=== PATIENT | male | born 1975 | race African-American/Black ===

== ENCOUNTER 2018-05-22 08:55 | Emergency (ER) | payer MEDICAID, OTHER ==
[~2018-05-22] VITALS: Ht 188 cm; Wt 81.6 kg
[2018-05-22 09:30] LABS: Urine Bacteria NONE SEEN /hpf (None Seen); Urine Blood TRACE /uL (Negative); Urine Specific Gravity 1.006 (1.001-1.035); Urine WBC <1 /hpf (0 - 3)
[2018-05-22] MEDS ORDERED: SODIUM CHLORIDE 0.9% 1,000 ML IV ONE ×2 (09:38)
[2018-05-22] MEDS ORDERED: ONDANSETRON HCL 4 MG/2 ML VIAL IV ONE (09:45)
[2018-05-22] MEDS ORDERED: MORPHINE SULFATE 4 MG/ML SYR/VIAL IV ONE (09:45)
[2018-05-22 09:52] LABS: Eosinophils # (auto) 0.1 uL; Lymphocytes # (auto) 2.3 uL; Neutrophils # (auto) 3.8 uL; Platelet Count (auto) 213 10^3/uL (140-450); White Blood Cell 6.7 10^3/uL (4.4-10.8)
[2018-05-22 09:54] LABS: Basophils # (auto) 0 uL; Basophils % (auto) 0.6 % (0.0-2.0); Eosinophils % (auto) 0.8 % (0.0-7.0); Hematocrit 52.2 % (41.0-53.0); Lymphocytes % (auto) 33.9 % (10.0-50.0); Mean Corpuscular Hemoglobin 30.3 pg (28.0-32.0); Mean Corpuscular Hgb Conc. 34.5 g/dL (32.0-36.0); Mean Corpuscular Volume 87.7 fL (80.0-100.0); Monocytes # (auto) 0.6 uL; Monocytes % (auto) 8.3 % (0.0-12.0); Neutrophils % (auto) 56.4 % (37.0-80.0); Nucleated Red Blood Cells % 0.4 %; Red Blood Cells 5.95 10^6/uL (4.5-5.90); Red Cell Distribution Width 16.6 % (11.8-14.3)
[2018-05-22 10:07] LABS: Amylase 55 U/L (25-115); Lipase 158 U/L (73-393)
[2018-05-22 10:08] LABS: Albumin 4.6 g/dL (3.4-5.0); Calcium 8.9 mg/dL (8.5-10.1); Potassium 3.3 mmol/L (3.5-5.1)
[2018-05-22 10:11] LABS: Bilirubin, Total 0.5 mg/dL (0.2-1.0); Total Protein 9.1 g/dL (6.4-8.2)
[2018-05-22] MEDS ORDERED: POTASSIUM EFFERVESENT TAB 25 MEQ PO ONE (12:15)
[2018-05-22] MEDS ORDERED: DONNATAL 5ml ORAL Elix (BELLADONNA ALK-PHENOBARB) PO ONE (12:15)
[2018-05-22] MEDS ORDERED: LIDOCAINE VISCOUS 2% 15ML UD PO ONE (12:15)
[2018-05-22] MEDS ORDERED: ALUM & MAG HYDROX-SIMETH LIQ(MAALOX) 30 ML PO ONE (12:15)
[2018-05-22] MEDS ORDERED: HYDROcodone-ACET 10/325MG TAB PO ONE (12:15)
[2018-05-22 14:20] VITALS: BP 126/68
== END 2018-05-22 14:35 | disposition home or self-care (01) ==
LOC: EDBD 08:55 → ER 08:59
DX: K29.70 Gastritis, unspecified, without bleeding (principal); E86.0 Dehydration
CPT/HCPCS: 36415; 71045; 74176; 80053; 81001; 82150; 83690; 84484; 85025; 96361; 96374; 96375; 99285; J2270; J2405; J7030

== ENCOUNTER 2018-05-23 01:02 | Emergency (ER) | payer MEDICAID ==
[~2018-05-23] VITALS: Ht 182.9 cm; Wt 81.6 kg
[2018-05-23] MEDS ORDERED: PROMETHAZINE HCL 25 MG/ML 1ML IV PRN (08:15)
[2018-05-23] MEDS ORDERED: MORPHINE SULFATE 4 MG/ML SYR/VIAL IV ONE (08:15)
[2018-05-23] MEDS ORDERED: IOHEXOL 300 MG/ML 100ML BOTTLE IJ ONE (08:47)
[2018-05-23 10:30] VITALS: BP 115/81
== END 2018-05-23 11:41 | disposition home or self-care (01) ==
LOC: ER 01:08
DX: R10.11 Right upper quadrant pain (principal); D18.1 Lymphangioma, any site
CPT/HCPCS: 74177; 96374; 96375; 99284; J2270; J2550; Q9967

== ENCOUNTER 2018-05-23 22:42 | Emergency (ER) | payer MEDICAID ==
[~2018-05-23] VITALS: Ht 182.9 cm; Wt 81.6 kg
[2018-05-24 01:06] VITALS: BP 116/84
[2018-05-24 01:10] LABS: Basophils # (auto) 0.1 uL; Basophils % (auto) 0.9 % (0.0-2.0); Eosinophils # (auto) 0 uL; Eosinophils % (auto) 0.4 % (0.0-7.0); Hematocrit 53.8 % (41.0-53.0); Hemoglobin 18.3 g/dL (13.5-17.5); Lymphocytes % (auto) 35.6 % (10.0-50.0); Mean Corpuscular Hemoglobin 29.7 pg (28.0-32.0); Mean Corpuscular Volume 87.4 fL (80.0-100.0); Monocytes # (auto) 0.5 uL; Monocytes % (auto) 5.9 % (0.0-12.0); Neutrophils # (auto) 4.8 uL; Neutrophils % (auto) 57.2 % (37.0-80.0); Nucleated Red Blood Cells % 1.1 %; Platelet Count (auto) 236 10^3/uL (140-450); Red Blood Cells 6.16 10^6/uL (4.5-5.90); Red Cell Distribution Width 16.6 % (11.8-14.3); White Blood Cell 8.3 10^3/uL (4.4-10.8)
[2018-05-24 01:28] LABS: Calcium 8.6 mg/dL (8.5-10.1); Potassium 4.4 mmol/L (3.5-5.1)
[2018-05-24] MEDS ORDERED: ONDANSETRON ODT 4 MG TAB PO ONE (01:30)
[2018-05-24] MEDS ORDERED: ALUM & MAG HYDROX-SIMETH LIQ(MAALOX) 30 ML PO ONE (01:30)
[2018-05-24 01:31] LABS: Albumin 4.2 g/dL (3.4-5.0); BUN/Creatinine Ratio 9.6
[2018-05-24 01:33] LABS: Bilirubin, Total 0.5 mg/dL (0.2-1.0); Total Protein 8.4 g/dL (6.4-8.2)
[2018-05-24] MEDS ORDERED: THIAMINE 100mg/ml INJ (200mg/2ml VIAL) IV ONE (02:00)
== END 2018-05-24 02:43 | disposition home or self-care (01) ==
LOC: ER 22:42
DX: K29.00 Acute gastritis without bleeding (principal); G92 Toxic encephalopathy; F10.129 Alcohol abuse with intoxication, unspecified; F15.90 Other stimulant use, unspecified, uncomplicated
CPT/HCPCS: 36415; 80053; 80320; 82150; 83690; 85025; 96374; 99284; J3411

== ENCOUNTER 2018-05-28 12:33 | Emergency (ER) | payer MEDICAID ==
[~2018-05-28] VITALS: Ht 182.9 cm; Wt 81.6 kg
[2018-05-28] MEDS ORDERED: SODIUM CHLORIDE 0.9% 1,000 ML IVB ONE (12:46)
[2018-05-28 13:37] LABS: Basophils # (auto) 0.1 uL; Eosinophils # (auto) 0 uL; Eosinophils % (auto) 0.5 % (0.0-7.0); Hemoglobin 17.8 g/dL (13.5-17.5); Monocytes # (auto) 0.5 uL; Nucleated Red Blood Cells % 0.2 %
[2018-05-28 13:38] LABS: Basophils % (auto) 0.7 % (0.0-2.0); Hematocrit 51.1 % (41.0-53.0); Lymphocytes % (auto) 27.5 % (10.0-50.0); Mean Corpuscular Hemoglobin 30.3 pg (28.0-32.0); Mean Corpuscular Hgb Conc. 34.8 g/dL (32.0-36.0); Monocytes % (auto) 6.4 % (0.0-12.0); Neutrophils # (auto) 4.8 uL; Neutrophils % (auto) 64.9 % (37.0-80.0); Platelet Count (auto) 204 10^3/uL (140-450); Red Blood Cells 5.88 10^6/uL (4.5-5.90); White Blood Cell 7.3 10^3/uL (4.4-10.8)
[2018-05-28 13:54] LABS: Albumin 3.6 g/dL (3.4-5.0); BUN/Creatinine Ratio 13.3; Magnesium 2.3 mg/dL (1.6-2.6); Potassium 3.5 mmol/L (3.5-5.1)
[2018-05-28 13:58] LABS: Bilirubin, Total 0.6 mg/dL (0.2-1.0); Total Protein 7.7 g/dL (6.4-8.2)
[2018-05-28] MEDS ORDERED: ONDANSETRON HCL 4 MG/2 ML VIAL IV ONE (14:00)
[2018-05-28] MEDS ORDERED: MORPHINE SULFATE 4 MG/ML SYR/VIAL IV ONE (14:00)
[2018-05-28 15:26] LABS: Urine Bacteria NONE SEEN /hpf (None Seen); Urine Blood 1+ /uL (Negative); Urine Mucus FEW (None Seen); Urine Specific Gravity 1.009 (1.001-1.035); Urine WBC <1 /hpf (0 - 3)
[2018-05-28 16:32] VITALS: BP 115/84
== END 2018-05-28 16:45 | disposition home or self-care (01) ==
LOC: EDBD 12:33 → ER 12:33
DX: F10.10 Alcohol abuse, uncomplicated (principal); F17.210 Nicotine dependence, cigarettes, uncomplicated; F15.90 Other stimulant use, unspecified, uncomplicated; R42 Dizziness and giddiness; Z59.0 Homelessness
CPT/HCPCS: 36415; 80053; 80320; 81001; 82150; 83690; 83735; 85025; 94761; 96361; 96374; 96375; 99284; J2270; J2405; J7030

== ENCOUNTER 2018-07-05 16:43 | Emergency (ER) | payer MEDICAID ==
[~2018-07-05] VITALS: Ht 182.9 cm; Wt 79.4 kg
[2018-07-05] MEDS ORDERED: SODIUM CHLORIDE 0.9% 1,000 ML IVB ONE (17:39)
[2018-07-05] MEDS ORDERED: LORazepam 2MG/ML-1ML VIAL IV ONE (17:45)
[2018-07-05] MEDS ORDERED: FAMOTIDINE (10MG/ML) 2ML VL IV ONE (18:00)
[2018-07-05 18:23] LABS: Eosinophils # (auto) 0 uL; Eosinophils % (auto) 0.2 % (0.0-7.0); Hemoglobin 17.7 g/dL (13.5-17.5); Mean Corpuscular Hgb Conc. 35.2 g/dL (32.0-36.0); Neutrophils # (auto) 4.1 uL
[2018-07-05 18:25] LABS: Basophils # (auto) 0.1 uL; Basophils % (auto) 0.8 % (0.0-2.0); Hematocrit 50.1 % (41.0-53.0); Lymphocytes # (auto) 2.2 uL; Lymphocytes % (auto) 31.1 % (10.0-50.0); Mean Corpuscular Hemoglobin 31.1 pg (28.0-32.0); Mean Corpuscular Volume 88.2 fL (80.0-100.0); Monocytes # (auto) 0.7 uL; Monocytes % (auto) 10.4 % (0.0-12.0); Neutrophils % (auto) 57.5 % (37.0-80.0); Nucleated Red Blood Cells % 0.2 %; Platelet Count (auto) 243 10^3/uL (140-450); Red Blood Cells 5.68 10^6/uL (4.5-5.90); Red Cell Distribution Width 14.6 % (11.8-14.3); Urine Bacteria NONE SEEN /hpf (None Seen); Urine Blood TRACE /uL (Negative); Urine Specific Gravity 1.004 (1.001-1.035); Urine WBC 1 /hpf (0 - 3); White Blood Cell 7.2 10^3/uL (4.4-10.8)
[2018-07-05 18:36] LABS: Albumin 3.8 g/dL (3.4-5.0); BUN/Creatinine Ratio 8.2; Calcium 8.6 mg/dL (8.5-10.1); Potassium 3.3 mmol/L (3.5-5.1)
[2018-07-05 18:38] LABS: Bilirubin, Total 0.6 mg/dL (0.2-1.0)
[2018-07-05 19:25] VITALS: BP 135/75
[2018-07-05 19:45] LABS: Amphetamine Screen, Urine NEGATIVE (NEGATIVE); Barbiturate Scree,Urine NEGATIVE (NEGATIVE); Benzodiazephine Screen, Urine NEGATIVE (NEGATIVE); Cannabinoid Screen, Urine NEGATIVE (NEGATIVE); Cocaine Screen, Urine NEGATIVE (NEGATIVE); Opiate Scree,Urine NEGATIVE (NEGATIVE); Phencyclidine Screen, Urine NEGATIVE (NEGATIVE)
== END 2018-07-05 21:04 | disposition home or self-care (01) ==
LOC: ER 16:43
DX: F10.129 Alcohol abuse with intoxication, unspecified (principal); F17.210 Nicotine dependence, cigarettes, uncomplicated; F12.90 Cannabis use, unspecified, uncomplicated; F15.90 Other stimulant use, unspecified, uncomplicated
CPT/HCPCS: 36415; 80053; 80307; 80320; 81001; 83690; 85025; 94761; 96374; 99283; J2060

== ENCOUNTER 2018-07-07 22:59 | Emergency (ER) | payer MEDICAID ==
[~2018-07-07] VITALS: Ht 182.9 cm; Wt 79.4 kg
[2018-07-07 23:48] VITALS: BP 126/93
== END 2018-07-08 06:17 | disposition left against medical advice (07) ==
LOC: ER 22:59
DX: F10.10 Alcohol abuse, uncomplicated (principal); Z53.21 Procedure and treatment not carried out due to patient leaving prior to being seen by health care provider
CPT/HCPCS: 80053; 80320

== ENCOUNTER → 2018-07-07 | Emergency (ER) | payer MEDICAID ==
[~2018-07-07] VITALS: Ht 188 cm; Wt 83.9 kg
[~2018-07-07] MED LIST: KETOROLAC TROMETH 30 MG/ML 1ML VIAL IV ONE; SODIUM CHLORIDE 0.9% 1,000 ML IV ONE
[2018-07-07 12:20] VITALS: BP 127/70
[2018-07-07 13:45] LABS: Basophils # (auto) 0 uL; Basophils % (auto) 0.6 % (0.0-2.0); Eosinophils # (auto) 0 uL; Eosinophils % (auto) 0.2 % (0.0-7.0); Hematocrit 50.4 % (41.0-53.0); Hemoglobin 17.6 g/dL (13.5-17.5); Lymphocytes # (auto) 1.3 uL; Lymphocytes % (auto) 19.5 % (10.0-50.0); Mean Corpuscular Volume 88.7 fL (80.0-100.0); Monocytes # (auto) 0.5 uL; Monocytes % (auto) 7.2 % (0.0-12.0); Neutrophils # (auto) 4.9 uL; Neutrophils % (auto) 72.5 % (37.0-80.0); Nucleated Red Blood Cells % 0.3 %; Platelet Count (auto) 206 10^3/uL (140-450); Red Blood Cells 5.68 10^6/uL (4.5-5.90); Red Cell Distribution Width 14.7 % (11.8-14.3); White Blood Cell 6.8 10^3/uL (4.4-10.8)
[2018-07-07 13:54] LABS: Albumin 3.9 g/dL (3.4-5.0); BUN/Creatinine Ratio 8.2; Calcium 8.4 mg/dL (8.5-10.1); Potassium 3.5 mmol/L (3.5-5.1)
[2018-07-07 13:57] LABS: Bilirubin, Total 0.7 mg/dL (0.2-1.0)
== END | disposition home or self-care (01) ==
LOC: EDUNIT# 12:02 → ER 12:02 → EDBD 12:02 → ER 16:15
DX: F10.129 Alcohol abuse with intoxication, unspecified (principal); R10.84 Generalized abdominal pain; F17.210 Nicotine dependence, cigarettes, uncomplicated; F12.90 Cannabis use, unspecified, uncomplicated; F15.90 Other stimulant use, unspecified, uncomplicated
CPT/HCPCS: 36415; 80053; 80320; 83690; 85025; 93005; 94761

== ENCOUNTER 2018-07-08 09:39 | Emergency (ER) | payer MEDICAID ==
[~2018-07-08] VITALS: Ht 188 cm; Wt 90.7 kg
[2018-07-08 09:48] VITALS: BP 127/76
[2018-07-08 10:20] LABS: Basophils # (auto) 0 uL; Eosinophils # (auto) 0 uL; Eosinophils % (auto) 0.3 % (0.0-7.0); Hemoglobin 18.1 g/dL (13.5-17.5); Monocytes # (auto) 0.4 uL
[2018-07-08 10:22] LABS: Basophils % (auto) 0.6 % (0.0-2.0); Hematocrit 52.2 % (41.0-53.0); Lymphocytes # (auto) 1.8 uL; Mean Corpuscular Hemoglobin 30.6 pg (28.0-32.0); Mean Corpuscular Hgb Conc. 34.7 g/dL (32.0-36.0); Mean Corpuscular Volume 88.2 fL (80.0-100.0); Monocytes % (auto) 6.3 % (0.0-12.0); Neutrophils # (auto) 3.4 uL; Neutrophils % (auto) 60.8 % (37.0-80.0); Nucleated Red Blood Cells % 0.1 %; Platelet Count (auto) 212 10^3/uL (140-450); Red Blood Cells 5.92 10^6/uL (4.5-5.90); Red Cell Distribution Width 14.6 % (11.8-14.3); White Blood Cell 5.6 10^3/uL (4.4-10.8)
[2018-07-08 10:51] LABS: Bilirubin, Total 0.4 mg/dL (0.2-1.0); Total Protein 7.9 g/dL (6.4-8.2)
[2018-07-08 10:55] LABS: Potassium 3.5 mmol/L (3.5-5.1)
[2018-07-08 10:56] LABS: BUN/Creatinine Ratio 13.2; Calcium 8.3 mg/dL (8.5-10.1)
== END 2018-07-08 15:25 | disposition left against medical advice (07) ==
LOC: EDBD 09:39 → ER 09:44
DX: F10.10 Alcohol abuse, uncomplicated (principal); Z53.21 Procedure and treatment not carried out due to patient leaving prior to being seen by health care provider
CPT/HCPCS: 36415; 80053; 80320; 85025

== ENCOUNTER 2024-09-05 13:27 | Emergency (ER) | payer MEDICAID ==
[~2024-09-05] VITALS: Ht 182.9 cm; Wt 81.0 kg
--- NOTE | 2024-09-05 14:29 | ED.PDOC ---
Eye-HPI HPI Comments 48-year-old male complaining of right ear plug. Patient states he was [place] last night when he tried to clean his ear today he thinks he pushed the wax in. Has been having intermittent pain and loss of hearing in the right side. Chief Complaint: Earache Time Seen by MD: 13:41 Primary Care Provider: UNKNOWN Reviewed Notes: Nurses Notes Allergies: Coded Allergies: NO KNOWN ALLERGIES (Unverified , 05/22/18) Information Source: Patient Mode of Arrival: Ambulatory Past Medical History PAST MEDICAL HISTORY: Denies Family History Family History: Unknown Social History Smoker: Cigarettes Alcohol: Heavy Drugs: Marijuana, Methamphetamine Lives In: Home Constitutional: denies: chills, diaphoresis, fatigue, fever, malaise, sweats, weakness, others EENTM: reports: ear pain; denies: blurred vision, double vision, ear bleeding, ear discharge, ear drainage, ear ringing, eye redness, hearing loss, mouth pain, mouth swelling, nasal discharge, nose bleeding, nose congestion, nose pain, photophobia, tearing, throat pain, throat swelling, voice changes, others Respiratory: denies: cough, hemoptysis, orthopnea, SOB at rest, shortness of breath, SOB with excertion, stridor, wheezing, others Cardiovascular: denies: chest pain, dizzy spells, diaphoresis, Dyspnea on exertion, edema, irregular heart beat, left arm pain, lightheadedness, palpitations, PND, syncope, others Gastrointestinal: denies: abdomen distended, abdominal pain, blood streaked bowels, constipated, diarrhea, dysphagia, difficulty swallowing, hematemesis, melena, nausea, poor appetite, poor fluid intake, rectal bleeding, rectal pain, vomiting, others Genitourinary: denies: burning, dysuria, flank pain, frequency, hematuria, incontinence, penile discharge, penile sore, pain, testicle pain, testicle swelling, urgency, others Neurological: denies: dizziness, fainting, headache, left sided numbness, left sided weakness, numbness, paresthesia, pre-existing deficit, right sided numbness, right sided weakness, seizure, speech problems, tingling, tremors, weakness, others Musculoskeletal: denies: back pain, gout, joint pain, joint swelling, muscle pain, muscle stiffness, neck pain, others Integumetry: denies: bruises, change in color, change in hair/nails, dryness, laceration, lesions, lumps, rash, wounds, others Allergic/Immunocompromised: denies: Difficulty Healing, Frequent Infections, Hives, Itching, others Physical Exam General Appearance: No Apparent Distress, Normal HEENT: Normal ENT Inspection, Pharynx Normal, Other (Canal plugged with wax right-sided) Neck: Full Range of Motion, Non-Tender, Normal, Normal Inspection Respiratory: Chest Non-Tender, Lungs Clear, No Accessory Muscle Use, No Respiratory Distress, Normal Breath Sounds Cardiovascular: No Edema, No JVD, No Murmur, No Gallop, Normal Peripheral Pulses, Regular Rate/Rhythm Breast Exam: Deferred Gastrointestinal: No Organomegaly, Non Tender, No Pulsatile Mass, Normal Bowel Sounds, Soft Genitalia: Deferred Pelvic: Deferred Rectal: Deferred Extremities: No calf tenderness, Normal capillary refill, Normal inspection, Normal range of motion, Non-tender, No pedal edema Musculoskeletal : Apperance: Normal Neurologic: Alert, 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 Was a procedure done?: No EENT DIFF Eye: N/A Ear: Cerumen Impaction X-Ray, Labs, Meds, VS Vital Signs Date Time Temp Pulse Resp B/P (MAP) Pulse Ox O2 Delivery O2 Flow Rate FiO2 16/ 13:35 97.9 102 16 126/82 (97) 96 X-Ray, Labs, Meds, VS Comment Ear lavage performed, large amount of wax removed. Patient states feeling better. Time of 1ST Reevaluation: 14:28 Reevaluation 1ST: Improved Patient Education/Counseling: Diagnosis, Treatment, Need For Follow Up (Patient advised to follow-up in the emergency room in the next 24 to 48 hours if symptoms do not improve. Advised follow-up with PCP in the next 3 to 5 days. Patient verbalized understanding. ) Family Education/Counseling: Diagnosis, Treatment Departure 1 Departure Time of Disposition: 14:28 Impression: Primary Impression: Cerumen impaction Qualified Codes: H61.21 - Impacted cerumen, right ear Disposition: HOME / SELF CARE / HOMELESS Condition: Fair Discharged With: Self Critical Care Note Critical Care Time?: No Stability Stability form required: No Heart Score Heart Score: Heart Score Response (Comments) Value History N/A 0 EKG N/A 0 Age N/A 0 Risk Factors N/A 0 Troponin N/A 0 Total 0 MADELIN KUHN Sep 05, 2024 14:29
[2024-09-05 14:33] VITALS: BP 126/82; PULSE 102; RESP 16; TEMP 97.9; O2SAT 96
== END 2024-09-05 14:35 | disposition home or self-care (01) ==
LOC: ER 13:27
DX: H61.21 Impacted cerumen, right ear (principal); F17.210 Nicotine dependence, cigarettes, uncomplicated; W44.G1XA Audio device entering into or through a natural orifice, initial encounter; Y93.89 Activity, other specified; Y92.89 Other specified places as the place of occurrence of the external cause; Y99.8 Other external cause status
CPT/HCPCS: 69209

== ENCOUNTER 2024-11-13 08:10 | Emergency (ER) | payer MEDICAID ==
[~2024-11-13] VITALS: Ht 182.9 cm; Wt 84.2 kg
[2024-11-13] MEDS: SODIUM CHLORIDE 0.9% 1,000 ML IV ONE (08:30)
--- NOTE | 2024-11-13 08:45 | ED.PDOC ---
GI ASSESSMENT HPI Comments 49Y M presents to ED with chief complaint left-sided abd pain x2days with nausea, vomiting, and diarrhea. Per pt, emesis is dark brown in color and diarrhea is johnson in color. Pt states diarrhea started today and he has only had one episode. Pt denies sick contact. Pt denies current alcohol, tobacco, and illicit drug use, with last use 3 years ago. No other signs/symptoms or history reported. Chief Complaint: Nausea/Vomiting Time Seen by MD: 08:25 Primary Care Provider: UNKNOWN Reviewed Notes: Nurses Notes, Medications, Allergies Allergies: Coded Allergies: NO KNOWN ALLERGIES (Unverified , 05/22/18) Information Source: Patient Mode of Arrival: Ambulatory Timing: Days Duration: Since onset Prehospital treatment: None Quality: Other Vomitus: Watery, Other (BROWN) Stool: Loose Severity: Mild Recent: None Recent Hx of: None Pain Location: LUQ, LLQ Modifying Factors: Nothing Associated sign and symptoms: Nausea, Vomiting, Diarrhea, Abdominal Pain Past Medical History PAST MEDICAL HISTORY: Denies Surgical History: Denies all surgeries Family History Family History: Unknown Social History Smoker: Non-Smoker Alcohol: Denies ETOH Use Drugs: Denies Drug Use Lives In: Home Constitutional: denies: chills, diaphoresis, fatigue, fever, malaise, sweats, weakness, others EENTM: denies: blurred vision, double vision, ear bleeding, ear discharge, ear drainage, ear pain, ear ringing, eye pain, eye redness, hearing loss, mouth pain, mouth swelling, nasal discharge, nose bleeding, nose congestion, nose pain, photophobia, tearing, throat pain, throat swelling, voice changes, others Respiratory: denies: cough, hemoptysis, orthopnea, SOB at rest, shortness of breath, SOB with excertion, stridor, wheezing, others Cardiovascular: denies: chest pain, dizzy spells, diaphoresis, Dyspnea on exertion, edema, irregular heart beat, left arm pain, lightheadedness, palpitations, PND, syncope, others Gastrointestinal: reports: abdominal pain, diarrhea, nausea, vomiting; denies: abdomen distended, blood streaked bowels, constipated, dysphagia, difficulty swallowing, hematemesis, melena, poor appetite, poor fluid intake, rectal bleeding, rectal pain, others Genitourinary: denies: burning, dysuria, flank pain, frequency, hematuria, incontinence, penile discharge, penile sore, pain, testicle pain, testicle swelling, urgency, others Neurological: denies: dizziness, fainting, headache, left sided numbness, left sided weakness, numbness, paresthesia, pre-existing deficit, right sided numbness, right sided weakness, seizure, speech problems, tingling, tremors, weakness, others Musculoskeletal: denies: back pain, gout, joint pain, joint swelling, muscle pain, muscle stiffness, neck pain, others Integumetry: denies: bruises, change in color, change in hair/nails, dryness, laceration, lesions, lumps, rash, wounds, others Allergic/Immunocompromised: denies: Difficulty Healing, Frequent Infections, Hives, Itching, others Hematologic/Lymphatic: denies: anemia, blood clots, easy bleeding, easy bruising, swollen glands, others Endocrine: denies: excessive hunger, excessive sweating, excessive thirst, excessive urination, flushing, intolerance to cold, intolerance to heat, unexplained weight gain, unexplained weight loss, others Psychiatric: denies: anxiety, bipolar disorder, depression, hopeless, panic disorder, schizophrenia, sleepless, suicidal, others All Other Systems: Reviewed and Negative Physical Exam General Appearance: No Apparent Distress, Normal HEENT: Normal ENT Inspection, Pharynx Normal, TMs Normal Neck: Full Range of Motion, Non-Tender, Normal, Normal Inspection Respiratory: Chest Non-Tender, Lungs Clear, No Accessory Muscle Use, No Respiratory Distress, Normal Breath Sounds Cardiovascular: No Edema, No JVD, No Murmur, No Gallop, Normal Peripheral Pulses, Regular Rate/Rhythm Breast Exam: Deferred Gastrointestinal: No Organomegaly, Non Tender, No Pulsatile Mass, Normal Bowel Sounds, Soft Genitalia: Deferred Pelvic: Deferred Rectal: Deferred Extremities: No calf tenderness, Normal capillary refill, Normal inspection, Normal range of motion, Non-tender, No pedal edema Musculoskeletal : Apperance: Normal Neurologic: Alert, 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 Was a procedure done?: No GI differential Dx Differential Diagnosis: Appendicitis, Bowel Obstruction, Constipation, Diverticular disease, Gastritis/PUD, Gastroenteritis, Inflammatory BD, Pancreatitis, UTI, Dehydration, Diabetes/ DKA, Electrolyte Imbalance, Food Poisoning, Bacterial, Viral, Impaction, Renal Failure, Stress Ulcer, Kidney Stone X-Ray, Labs, Meds, VS Vital Signs Date Time Temp Pulse Resp B/P (MAP) Pulse Ox O2 Delivery O2 Flow Rate FiO2 11/13/24 09:30 98.2 92 14 109/72 (84) 96 98.2 11/13/24 09:30 92 14 96 Room Air* 0 21 11/13/24 08:18 97.9 119 19 123/85 (98) 99 97.9 Lab Test 11/13/24 11:03 11/13/24 08:34 Range/Units Urine Color Yellow Yellow Urine Clarity Clear Clear Urine pH 5.5 5.0-9.0 Urine Specific [place] 1.043 H 1.001-1.035 Urine Protein Trace H Negative Urine Ketones 2+ H Negative Urine Blood 1+ H Negative /uL Urine Nitrite Negative Negative Urine Bilirubin Negative Negative Urine Urobilinogen Normal Negative mg/dL Urine Leukocyte Esterase Negative Negative /uL Urine RBC 7 0 - 3 /hpf Urine Microscopic WBC 1 0-3 /HPF Urine Squamous Epithelial Cells Few <5 /hpf Urine Bacteria None seen None Seen /hpf Urine Mucus Few None Seen Urine Glucose 4+ H Normal mg/dL White Blood Count 7.7 4.4-10.8 10^3/uL Red Blood Count 5.91 H 4.5-5.90 10^6/uL Hemoglobin 17.1 13.5-17.5 g/dL Hematocrit 48.9 41.0-53.0 % Mean Corpuscular Volume 82.7 80.0-100.0 fL Mean Corpuscular Hemoglobin 29.0 28.0-32.0 pg Mean Corpuscular Hemoglobin Concent 35.0 32.0-36.0 g/dL Red Cell Distribution Width 13.9 11.8-14.3 % Platelet Count 175 140-450 10^3/uL Mean Platelet Volume 8.5 6.9-10.8 fL Neutrophils (%) (Auto) 87.3 H 37.0-80.0 % Lymphocytes (%) (Auto) 6.0 L 10.0-50.0 % Monocytes (%) (Auto) 6.2 0.0-12.0 % Eosinophils (%) (Auto) 0.3 0.0-7.0 % Basophils (%) (Auto) 0.2 0.0-2.0 % Neutrophils # (Auto) 6.7 1.6-8.6 10 ^3/uL Lymphocytes # (Auto) 0.5 0.4-5.4 10 ^3/uL Monocytes # (Auto) 0.5 0-1.3 10 ^3/uL Eosinophils # (Auto) 0 0-0.8 10 ^3/uL Basophils # (Auto) 0 0-0.2 10 ^3/uL Nucleated Red Blood Cells 0.3 % Sodium Level 136 136-145 mmol/L Potassium Level 4.0 3.5-5.1 mmol/L Chloride Level 102 98-107 mmol/L Carbon Dioxide Level 24 20-31 mmol/L Anion Gap 10 5-15 Blood Urea Nitrogen 15 9-23 mg/dL Creatinine 0.94 0.700-1.30 mg/dL Glomerular Filtration Rate Calc 99 >90 mL/min BUN/Creatinine Ratio 16.0 10.0-20.0 Serum Glucose 279 H 74-106 mg/dL Calcium Level 9.5 8.7-10.4 mg/dL Total Bilirubin 1.5 H 0.2-1.0 mg/dL Aspartate Amino Transferase (AST) 33 13-40 U/L Alanine Aminotransferase (ALT) 42 H 7-40 U/L Alkaline Phosphatase 104 46-116 U/L Total Protein 7.6 5.7-8.2 g/dL Albumin 4.9 H 3.2-4.8 g/dL Lipase 36 12-53 U/L Plasma/Serum Blood Alcohol < 3.0 <10 mg/dL Current Medications Medications (Trade) Dose Ordered Sig/Elliott Route Start Time Stop Time Status Last Admin Ondansetron HCl (Zofran) 4 mg ONCE ONCE IV 11/13/24 08:30 11/13/24 08:31 DC 11/13/24 09:23 Sodium Chloride 1,000 ml @ 1,000 mls/hr Q1H ONCE IV 11/13/24 08:30 11/13/24 09:29 DC 11/13/24 08:[address] [address] Ph: [phone] DIAGNOSTIC IMAGING Diagnostic Imaging Report : [id number] Signed PATIENT: LATASHA DELANEY SRACCT: [id number] UNIT: [id number] : 1975 LOC: ER ROOM / BED: / AGE / SEX: 49 / M ADM STATUS: REG ER SERVICE [id number] ORDERING PHYSICIAN: ALLAN OG MD PROCEDURE(s): ABPL - CT AB PEL WO CON-NO ORAL OR IV REASON: abdominal pain ORDER NUMBER(s): [id number], ACCESSION NUMBER(s): [id number] CLINICAL HISTORY: Severe abdominal pain with nausea and vomiting TECHNIQUE: CT of the abdomen and pelvis was performed without intravenous contrast. This exam was performed according to our departmental dose optimization program. Up-to-date CT equipment and radiation dose reduction techniques are utilized as appropriate. CTDI: 10.9 DLP: 576.31 WID: COMPARISON: None FINDINGS: Lower Thorax: Small symmetric bilateral gynecomastia. Lung bases are clear. There is mild distention of the visualized esophagus with fluid and debris. Upper limits of normal-sized heart. Trace pericardial fluid. Liver and Biliary system: Normal-sized liver. Mild hepatic steatosis. No definite hepatic lesion. Gallbladder is normal caliber. There is no biliary pop debra dilatation. Spleen: Mild splenomegaly. Adrenal Glands and Kidneys: Normal adrenal glands. Tiny nonobstructing left lower pole renal calculi. There is a small hypodensity in the lower pole left kidney which is not optimally evaluated without contrast though may reflect a cyst. No hydronephrosis in either kidney. Pancreas and Retroperitoneum: Normal unopacified pancreas. A few mildly prominent retroperitoneal lymph nodes although predominantly are normal-size. Aorta and Major Vessels: Aortoiliac vessels are normal in caliber. There is trace calcified plaque in the distal abdominal aorta. Bowel, Mesentery and Peritoneal space: The small and large bowel loops are normal in caliber. Normal appendix. Scattered fluid containing small bowel loops and fluid-filled large bowel. There is no free intraperitoneal air or fluid collection. Pelvis: Unremarkable. Abdominal wall and Osseous Structures: Small fat containing umbilical hernia. Minor lower thoracic and lumbar spondylosis. No destructive osseous lesion. IMPRESSION: 1. Fluid-filled small and large bowel which may be from infectious or inflammatory enterocolitis. 2. Mild distention of the visualized lower esophagus which appears mildly thickened with fluid and debris which could be related to gastroesophageal reflux and/or esophagitis. 3. Mild splenomegaly. 4. Tiny nonobstructing left lower pole renal calculi. ATED BY: LEONILA HELM MD DICTATED DATE/TIME: 11/13/24 1116 SIGNED BY: LEONILA HELM MD SIGNED DATE/TIME: 11/13/24 1116 CC: Time of 1ST Reevaluation: 08:55 Reevaluation 1ST: Unchanged Time of 2ND Reevaluation: 09:47 Reevaluation 2ND: Unchanged Patient Education/Counseling: Diagnosis, Treatment, Prognosis, Need For Follow Up Family Education/Counseling: No Family Present Additional Information Previous [facility] admission/discharge: None Previous [facility] ER visits: 09/05/2024 dx cerumen impaction, 09/08/2017 dx etoh withdrawal The following tests were ordered, and results were reviewed by me: CBC, CMP, LIPASE, CT ABD/PELVIS WO CONTRAST Additional Information was gathered from interviewing the following independent historians: None I reviewed and agreed with the following test results read by other providers: CT ABD/PELVIS WO CONTRAST I discussed treatment and results with medical personnel and: Patient Comprehensive systems review obtained and negative except for what is stated in the HPI. pt feels improved with the nausea, but now reports left sided abdominal pain. i will order a ct and fentanyl the ct shows enterocolitis. pt is feeling improved and does not want to be admitted. i will prescribe zofran for him Departure 1 Departure Time of Disposition: 12:04 Impression: Primary Impression: Enterocolitis Disposition: 01 HOME / SELF CARE / HOMELESS Condition: Good e-Prescriptions Ondansetron Odt 4MG Tab (ZOFRAN PO) 4 Mg Tb 4 MG PO Q4HP PRN for 3 Days, #15 TAB ODT TAB-DISSOLVE IN MOUTH, THEN SWALLOW Prov: ALLAN OG MD 11/13/24 Discharged With: Self Critical Care Note Critical Care Time?: No Stability Stability form required: No Heart Score Heart Score: Heart Score Response (Comments) Value History N/A 0 EKG N/A 0 Age N/A 0 Risk Factors N/A 0 Troponin N/A 0 Total 0 I personally scribed for ALLAN OG MD ([facility]) on 11/13/24 at 08:45. Electronically submitted by Karla Whitmore ([facility]). I personally scribed for ALLAN OG MD ([facility]) on 11/13/24 at 09:53. Electronically submitted by Karla Whitmore ([facility]). I personally scribed for ALLAN OG MD ([facility]) on 11/13/24 at 11:21. Electronically submitted by Karla Whitmore ([facility]). ALLAN OG MD Nov 13, 2024 08:45
[2024-11-13 08:53] LABS: Basophils # (auto) 0 10 ^3/uL (0-0.2); Basophils % (auto) 0.2 % (0.0-2.0); Eosinophils # (auto) 0 10 ^3/uL (0-0.8); Eosinophils % (auto) 0.3 % (0.0-7.0); Hematocrit 48.9 % (41.0-53.0); Hemoglobin 17.1 g/dL (13.5-17.5); Lymphocytes # (auto) 0.5 10 ^3/uL (0.4-5.4); Mean Corpuscular Volume 82.7 fL (80.0-100.0); Monocytes # (auto) 0.5 10 ^3/uL (0-1.3); Monocytes % (auto) 6.2 % (0.0-12.0); Neutrophils # (auto) 6.7 10 ^3/uL (1.6-8.6); Neutrophils % (auto) 87.3 % (37.0-80.0); Nucleated Red Blood Cells % 0.3 %; Platelet Count (auto) 175 10^3/uL (140-450); Red Blood Cells 5.91 10^6/uL (4.5-5.90); Red Cell Distribution Width 13.9 % (11.8-14.3); White Blood Cell 7.7 10^3/uL (4.4-10.8)
[2024-11-13 09:07] LABS: Alkaline Phosphatase 104 U/L (46-116); Anion Gap 10 (5-15); Aspartate Aminotransferase 33 U/L (13-40); Blood Urea Nitrogen 15 mg/dL (9-23); Calcium 9.5 mg/dL (8.7-10.4); Carbon Dioxide 24 mmol/L (20-31); Chloride 102 mmol/L (98-107); Lipase 36 U/L (12-53); Total Protein 7.6 g/dL (5.7-8.2)
[2024-11-13 09:08] LABS: Alanine Aminotransferase 42 U/L (7-40); Albumin 4.9 g/dL (3.2-4.8); Bilirubin, Total 1.5 mg/dL (0.2-1.0); Glucose 279 mg/dL (74-106); Sodium 136 mmol/L (136-145)
[2024-11-13] MEDS: ONDANSETRON HCL 4 MG/2 ML VIAL IV ONE (09:23)
[2024-11-13 09:30] VITALS: PULSE 92; RESP 14; TEMP 98.2; O2SAT 96
[2024-11-13 11:05] LABS: Urine Bacteria None Seen /hpf (None Seen)
[2024-11-13 11:18] LABS: Urine Blood 1+ /uL (Negative); Urine Clarity Clear (Clear); Urine Color Yellow (Yellow); Urine Mucus FEW (None Seen); Urine Protein, UAD TRACE (Negative); Urine Specific Gravity 1.043 (1.001-1.035); Urine Squamous Epithelial Cell FEW /hpf (<5); Urine Urobilinogen Normal (Negative); Urine WBC 1 /HPF (0-3); Urine pH 5.5 (5.0-9.0)
--- NOTE | 2024-11-13 11:19 | DVH ---
CLINICAL HISTORY: Severe abdominal pain with nausea and vomiting TECHNIQUE: CT of the abdomen and pelvis was performed without intravenous contrast. This exam was per formed according to our departmental dose optimization program. Up-to-date CT equipment and radiation dose reduction techniques are utilized as appropriate. CTDI: 10.9 DLP: 576.31 WID: COMPARISON: None FINDINGS: Lower Thorax: Small symmetric bilateral gynecomastia. Lung bases are clear. There is mild distention of the visualized esophagus with fluid and debris. Upper limits of normal-sized heart. Trace pericar dial fluid. Liver and Biliary system: Normal-sized liver. Mild hepatic steatosis. No definite hepatic lesion. Gal lbladder is normal caliber. There is no biliary ductal dilatation. Spleen: Mild splenomegaly. Adrenal Glands and Kidneys: Normal adrenal glands. Tiny nonobstructing left lower pole renal calculi. There is a small hypodensity in the lower pole left kidney which is not optimally evaluated without contrast though may reflect a cyst. No hydronephrosis in either kidney. Pancreas and Retroperitoneum: Normal unopacified pancreas. A few mildly prominent retroperitoneal lym ph nodes although predominantly are normal-size. Aorta and Major Vessels: Aortoiliac vessels are normal in caliber. There is trace calcified plaque in the distal abdominal aorta. Bowel, Mesentery and Peritoneal space: The small and large bowel loops are normal in caliber. Normal appendix. Scattered fluid containing small bowel loops and fluid-filled large bowel. There is no free intraperitoneal air or fluid collection. Pelvis: Unremarkable. Abdominal wall and Osseous Structures: Small fat containing umbilical hernia. Minor lower thoracic an d lumbar spondylosis. No destructive osseous lesion. IMPRESSION: 1. Fluid-filled small and large bowel which may be from infectious or inflammatory enterocolitis. 2. Mild distention of the visualized lower esophagus which appears mildly thickened with fluid and de bris which could be related to gastroesophageal reflux and/or esophagitis. 3. Mild splenomegaly. 4. Tiny nonobstructing left lower pole renal calculi.
[2024-11-13] MEDS ORDERED: ZOFR4T PO (12:04)
[2024-11-13] MEDS: fentaNYL CITRATE 100 MCG/2 ML VL IV ONE (12:36)
[2024-11-13 13:00] VITALS: BP 110/70; PULSE 96; RESP 14; O2SAT 96
== END 2024-11-13 13:38 | disposition home or self-care (01) ==
LOC: ER 08:10
DX: K52.9 Noninfective gastroenteritis and colitis, unspecified (principal)
CPT/HCPCS: 36415; 74176; 80053; 80320; 81001; 83690; 85025; 96361; 96374; 96375; 99285; J2405; J3010; J7030

== ENCOUNTER 2024-12-03 17:30 | Emergency (ER) | payer MEDICAID ==
[~2024-12-03 17:30] MED LIST changes: -KETOROLAC TROMETH 30 MG/ML 1ML VIAL IV ONE; -SODIUM CHLORIDE 0.9% 1,000 ML IV ONE; +ZOFR4T PO
== END 2024-12-03 18:42 | disposition left against medical advice (07) ==
LOC: ER 17:33
DX: R10.2 Pelvic and perineal pain (principal); Z53.21 Procedure and treatment not carried out due to patient leaving prior to being seen by health care provider

== ENCOUNTER 2024-12-11 13:28 | Inpatient (IN) | payer MEDICAID ==
[~2024-12-11] VITALS: Ht 182.9 cm; Wt 83.3 kg
[2024-12-11 14:00] VITALS: PULSE 119; RESP 18; O2SAT 95
[2024-12-11] MEDS: ONDANSETRON HCL 4 MG/2 ML VIAL IV ONE (14:26)
[2024-12-11] MEDS: fentaNYL CITRATE 100 MCG/2 ML VL IV ONE (14:27)
[2024-12-11] MEDS: SODIUM CHLORIDE 0.9% 1,000 ML IV ONE (14:32)
[2024-12-11 14:36] LABS: Basophils # (auto) 0.1 10 ^3/uL (0-0.2); Basophils % (auto) 0.8 % (0.0-2.0); Eosinophils # (auto) 0.1 10 ^3/uL (0-0.8); Eosinophils % (auto) 0.6 % (0.0-7.0); Hematocrit 46.8 % (41.0-53.0); Hemoglobin 16.4 g/dL (13.5-17.5); Lymphocytes # (auto) 2.7 10 ^3/uL (0.4-5.4); Lymphocytes % (auto) 31.3 % (10.0-50.0); Mean Corpuscular Volume 82.8 fL (80.0-100.0); Monocytes # (auto) 0.8 10 ^3/uL (0-1.3); Monocytes % (auto) 9.4 % (0.0-12.0); Neutrophils # (auto) 4.9 10 ^3/uL (1.6-8.6); Neutrophils % (auto) 57.9 % (37.0-80.0); Nucleated Red Blood Cells % 0.3 %; Platelet Count (auto) 198 10^3/uL (140-450); Red Blood Cells 5.65 10^6/uL (4.5-5.90); Red Cell Distribution Width 14.3 % (11.8-14.3); White Blood Cell 8.5 10^3/uL (4.4-10.8)
--- NOTE | 2024-12-11 14:37 | ED.PDOC ---
GI ASSESSMENT HPI Comments 49 y/o M, with PMHx of alcohol abuse and pancreatitis presents to the ED for CC of abdominal pain. Patient states, he has been experiencing LLQ abdominal pain with associated nausea and vomiting onset, today (12/11/24). 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 Patient denies auditory hallucinations, visual hallucinations, tremors, or diarrhea. No other symptoms or modifying factors present at this time. Chief Complaint: Abdominal Pain Time Seen by MD: 13:50 Primary Care Provider: CRISTIN Reviewed Notes: Nurses Notes, Medications, Allergies Allergies: Coded Allergies: NO KNOWN ALLERGIES (Unverified , 05/22/18) Home Meds Active Scripts Ondansetron Odt 4MG Tab (ZOFRAN PO) 4 Mg Tb, 4 MG PO Q4HP PRN for 3 Days, #15 TAB ODT TAB-DISSOLVE IN MOUTH, THEN SWALLOW Prov:ALLAN OG MD 11/13/24 Information Source: Patient Mode of Arrival: Ambulatory Timing: Days Duration: Since onset Prehospital treatment: None Vomitus: Watery Stool: Normal Severity: Moderate Recent: None Recent Hx of: None Pain Location: LLQ, None Modifying Factors: Nothing Associated sign and symptoms: Nausea, Vomiting, Abdominal Pain Past Medical History PAST MEDICAL HISTORY: Denies Surgical History: Denies all surgeries Family History Family History: Unknown Social History Smoker: Non-Smoker Alcohol: Denies ETOH Use Drugs: Denies Drug Use Lives In: Home Constitutional: denies: chills, diaphoresis, fatigue, fever, malaise, sweats, weakness, others EENTM: denies: blurred vision, double vision, ear bleeding, ear discharge, ear drainage, ear pain, ear ringing, eye pain, eye redness, hearing loss, mouth pain, mouth swelling, nasal discharge, nose bleeding, nose congestion, nose pain, photophobia, tearing, throat pain, throat swelling, voice changes, others Respiratory: denies: cough, hemoptysis, orthopnea, SOB at rest, shortness of breath, SOB with excertion, stridor, wheezing, others Cardiovascular: denies: chest pain, dizzy spells, diaphoresis, Dyspnea on exertion, edema, irregular heart beat, left arm pain, lightheadedness, palpitations, PND, syncope, others Gastrointestinal: reports: abdominal pain; denies: abdomen distended, blood streaked bowels, constipated, diarrhea, dysphagia, difficulty swallowing, hemat emesis, melena, nausea, poor appetite, poor fluid intake, rectal bleeding, rectal pain, vomiting, others Genitourinary: denies: burning, dysuria, flank pain, frequency, hematuria, incontinence, penile discharge, penile sore, pain, testicle pain, testicle swelling, urgency, others Neurological: denies: dizziness, fainting, headache, left sided numbness, left sided weakness, numbness, paresthesia, pre-existing deficit, right sided numbness, right sided weakness, seizure, speech problems, tingling, tremors, weakness, others Musculoskeletal: denies: back pain, gout, joint pain, joint swelling, muscle pain, muscle stiffness, neck pain, others Integumetry: denies: bruises, change in color, change in hair/nails, dryness, laceration, lesions, lumps, rash, wounds, others Allergic/Immunocompromised: denies: Difficulty Healing, Frequent Infections, Hives, Itching, others Hematologic/Lymphatic: denies: anemia, blood clots, easy bleeding, easy bruising, swollen glands, others Endocrine: denies: excessive hunger, excessive sweating, excessive thirst, excessive urination, flushing, intolerance to cold, intolerance to heat, unexplained weight gain, unexplained weight loss, others Psychiatric: denies: anxiety, bipolar disorder, depression, hopeless, panic disorder, schizophrenia, sleepless, suicidal, others All Other Systems: Reviewed and Negative Physical Exam General Appearance: No Apparent Distress, Normal HEENT: Normal ENT Inspection, Pharynx Normal, TMs Normal Neck: Full Range of Motion, Non-Tender, Normal, Normal Inspection Respiratory: Chest Non-Tender, Lungs Clear, No Accessory Muscle Use, No Respiratory Distress, Normal Breath Sounds Cardiovascular: No Edema, No Murmur, No Gallop, Normal Peripheral Pulses, Tachycardia Breast Exam: Deferred Gastrointestinal: No Organomegaly, Non Tender, No Pulsatile Mass, Normal Bowel Sounds, Soft Genitalia: Deferred Pelvic: Deferred Rectal: Deferred Extremities: No calf tenderness, Normal capillary refill, Normal inspection, Normal range of motion, Non-tender, No pedal edema Musculoskeletal : Apperance: Normal Neurologic: Alert, 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 Was a procedure done?: No GI differential Dx Differential Diagnosis: Bowel Obstruction, Constipation, Diverticular disease, Gastritis/PUD, Gastroenteritis, Hepatitis, Inflammatory BD, Pancreatitis, UTI, Urolithiasis, Dehydration, Diabetes/ DKA, Drug toxicity, Electrolyte Imbalance, Food Poisoning, Bacterial, Viral, Hypovolemia, Impaction, Renal Failure, Ischemic Bowel, Kidney Stone X-Ray, Labs, Meds, VS Vital Signs Date Time Temp Pulse Resp B/P (MAP) Pulse Ox O2 Delivery O2 Flow Rate FiO2 12/11/24 16:00 98 15 106/53 (70) 94 12/11/24 14:27 106/64 12/11/24 14:00 119 18 95 Room Air* 0 21 12/11/24 14:00 98.1 119 18 106/64 (78) 96 98.1 12/11/24 13:54 121 12/11/24 13:51 97.0 147 20 104/77 (86) 96 97.0 Lab Test 12/11/24 15:51 12/11/24 14:22 12/11/24 14:02 Range/Units White Blood Count 7.5 8.5 4.4-10.8 10^3/uL Red Blood Count 5.30 5.65 4.5-5.90 10^6/uL Hemoglobin 15.4 16.4 13.5-17.5 g/dL Hematocrit 44.5 46.8 41.0-53.0 % Mean Corpuscular Volume 84.0 82.8 80.0-100.0 fL Mean Corpuscular Hemoglobin 29.0 29.0 28.0-32.0 pg Mean Corpuscular Hemoglobin Concent 34.5 35.0 32.0-36.0 g/dL Red Cell Distribution Width 14.6 H 14.3 11.8-14.3 % Platelet Count 187 198 140-450 10^3/uL Mean Platelet Volume 8.3 8.3 6.9-10.8 fL Neutrophils (%) (Auto) 56.1 57.9 37.0-80.0 % Lymphocytes (%) (Auto) 33.2 31.3 10.0-50.0 % Monocytes (%) (Auto) 9.1 9.4 0.0-12.0 % Eosinophils (%) (Auto) 0.8 0.6 0.0-7.0 % Basophils (%) (Auto) 0.8 0.8 0.0-2.0 % Neutrophils # (Auto) 4.2 4.9 1.6-8.6 10 ^3/uL Lymphocytes # (Auto) 2.5 2.7 0.4-5.4 10 ^3/uL Monocytes # (Auto) 0.7 0.8 0-1.3 10 ^3/uL Eosinophils # (Auto) 0.1 0.1 0-0.8 10 ^3/uL Basophils # (Auto) 0.1 0.1 0-0.2 10 ^3/uL Nucleated Red Blood Cells 0.1 0.3 % Sodium Level 140 137 136-145 mmol/L Potassium Level 3.2 L 3.3 L 3.5-5.1 mmol/L Chloride Level 103 99 98-107 mmol/L Carbon Dioxide Level 22 21 20-31 mmol/L Anion Gap 15 17 H 5-15 Blood Urea Nitrogen 10 11 9-23 mg/dL Creatinine 1.00 1.24 0.700-1.30 mg/dL Glomerular Filtration Rate Calc 92 71 >90 mL/min BUN/Creatinine Ratio 10.0 8.9 L 10.0-20.0 Serum Glucose 206 H 276 H 74-106 mg/dL Calcium Level 8.8 10.1 8.7-10.4 mg/dL Total Bilirubin 0.5 0.8 0.2-1.0 mg/dL Aspartate Amino Transferase (AST) 30 31 13-40 U/L Alanine Aminotransferase (ALT) 48 H 53 H 7-40 U/L Alkaline Phosphatase 89 98 46-116 U/L Total Protein 6.2 6.8 5.7-8.2 g/dL Albumin 4.1 4.5 3.2-4.8 g/dL Lipase 42 46 12-53 U/L Plasma/Serum Blood Alcohol 205.0 H <10 mg/dL POC Glucose 275 H 70-106 mg/dl Current Medications Medications (Trade) Dose Ordered Sig/Elliott Route Start Time Stop Time Status Last Admin Sodium Chloride 1,000 ml @ 1,000 mls/hr Q1H ONCE IV 12/11/24 14:15 12/11/24 15:40 DC 12/11/24 14:32 Fentanyl Citrate 25 mcg ONCE ONCE IV 12/11/24 14:15 12/11/24 14:16 DC 12/11/24 14:27 Ondansetron HCl (Zofran) 4 mg ONCE ONCE IV 12/11/24 14:15 12/11/24 14:16 DC 12/11/24 14:26 [place] [id number] Ph: [phone] DIAGNOSTIC IMAGING Diagnostic Imaging Report : [id number] Signed [id number]: [id number] : 1975 LOC: ER ROOM / BED: / AGE / SEX: 49 / M ADM STATUS: REG ER SERVICE 1412 ORDERING PHYSICIAN: ALLAN OG MD PROCEDURE(s): ABPL - CT AB PEL WO CON-NO ORAL OR IV REASON: r/o pancreatitis ORDER NUMBER(s): [id number], ACCESSION NUMBER(s): [id number] Exam: CT CT AB PEL WO CON-NO ORAL OR IV History: r/o pancreatitis Comparison Study: CT CT AB PEL WO CON-NO ORAL OR IV on DOS: 11/13/24 TECHNIQUE: Multidetector CT of the abdomen was performed from lung bases to pubic symphysis. Imaging was performed without IV contrast. Axial, coronal and sagittal multiplanar reformats were obtained from the axial data set by the technologist. Radiation Dose Information: CT Dose: CTDI volume is 6.41 mGy. Dose-length product is 342.23 mGy*cm FINDINGS: Evaluation of solid organs is limited due to lack of intravenous contrast use. Findings: Lung Bases: No acute or significant lung base finding. Normal heart size. No pleural or pericardial effusion. Liver: The liver is normal in size. No focal lesions. Gallbladder and Biliary Tree: Unremarkable Spleen: Unremarkable Pancreas: The pancreas is grossly normal in appearance. Adrenal Glands: Unremarkable Kidneys: Kidneys are grossly normal . Punctate nonobstructing calculus left kidney. Bladder: Grossly unremarkable for degree of distention. Bowel: The stomach is grossly normal in appearance. Small bowel and colon are normal in caliber and distribution. The appendix is not visualized; however, no secondary findings of acute appendicitis identified. Ascites: Absent Lymphadenopathy: No mesenteric, retroperitoneal or periportal lymphadenopathy. Abdominal Wall and Mesentery: Unremarkable. Vasculature: The visualized abdominal aorta is normal in size and caliber. Evaluation of abdominal and pelvic vessels is limited due to lack of intravenous contrast. Pelvic Organs: Prostate measures 5.1 by 4.8 cm Musculoskeletal: No aggressive focal bony lesions, acute fractures or dislocation. Soft tissues: Unremarkable IMPRESSION: 1. Prostate measures 5.1 x 4.[address] findings of bowel obstruction. Possible parenchymal edema of the pancreas no peripancreatic inflammatory changes or fluid collections. No cystic changes to the pancreas. Correlate with lab values. Radiation optimization: All CT scans at this facility use at least one of these dose optimization techniques: automated exposure control mA and/or kV adj ustment per patient size (includes targeted exams where dose is matched to clinical indication) or iterative reconstruction. HS:Y ATED BY: ALECIA CAMPA Jr., DO DICTATED DATE/TIME: 12/11/24 151 SIGNED BY: ALECIA CAMPA Jr., SIGNED DATE/TIME: 12/11/24 1514 CC: Time of 1ST Reevaluation: 14:20 Reevaluation 1ST: Unchanged Time of 2ND Reevaluation: 17:07 Reevaluation 2ND: Improved Patient Education/Counseling: Diagnosis, Treatment, Prognosis, Need For Follow Up Family Education/Counseling: No Family Present Additional Information Previous visits reviewed: 11/13/24 DX: ENTEROCOLITIS, 09/05/24 DX: CERUMEN IMPACTION The following tests were ordered, and results were reviewed by me: CBC, CMP, LIPASE, DRUG SCREEN, URINE ETHANOL, CT ABD PEL I reviewed and agreed with the following test results read by other providers: CT ABD PEL I discussed treatment and results with medical personnel and: patient Comprehensive systems review obtained and negative except for what is stated in the HPI. pt is diabetic and has abdominal pain, cannot keep oral intake down. he feels he has pancreatitis from recent etoh use. however, only edema of the pancreas is shown. due to concerns for progression dto dka, and worsening of abdominal pain, i will have pt admitted Departure 1 Departure Time of Disposition: 17:08 Impression: Primary Impression: Epigastric pain Additional Impressions: Alcohol abuse Substance abuse Uncontrolled diabetes mellitus Qualified Codes: E09.65 - Drug or chemical induced diabetes mellitus with hyperglycemia Disposition: ADMITTED INPATIENT Admit to: Med Surg Condition: Serious Discharged With: Self Critical Care Note Critical Care Time?: Yes (55 min-critical care time only) Critical care comment: Due to concerns for patients condition deteriorating, the care required my highest level of attention and readiness to intervene. I assessed the patient, reviewed the medical records, ordered the appropriate tests and treatments, then reassessed for results and responsiveness. I communicated with medical personnel and consultants and formulated a plan of care. Total critical care time excludes any procedures Stability Stability form required: No Heart Score Heart Score: Heart Score Response (Comments) Value History N/A 0 EKG N/A 0 Age N/A 0 Risk Factors N/A 0 Troponin N/A 0 Total 0 I personally scribed for ALLAN OG MD ([email or web address]) on 12/11/24 at 14:37. Electronically submitted by Sakshi De Paz ([email or web address]). I personally scribed for ALLAN OG MD ([email or web address]) on 12/11/24 at 14:41. Electronically submitted by Sakshi De Paz ([email or web address]). I personally scribed for ALLAN OG MD ([email or web address]) on 12/11/24 at 14:50. Electronically submitted by Sakshi De Paz ([email or web address]). I personally scribed for ALLAN OG MD ([email or web address]) on 12/11/24 at 16:08. Electronically submitted by Sakshi De Paz ([email or web address]). ALLAN OG MD December 11, 2024 14:37
[2024-12-11 14:53] LABS: Albumin 4.5 g/dL (3.2-4.8); Alkaline Phosphatase 98 U/L (46-116); Anion Gap 17 (5-15); Aspartate Aminotransferase 31 U/L (13-40); BUN/Creatinine Ratio 8.9 (10.0-20.0); Blood Urea Nitrogen 11 mg/dL (9-23); Calcium 10.1 mg/dL (8.7-10.4); Carbon Dioxide 21 mmol/L (20-31); Chloride 99 mmol/L (98-107); Sodium 137 mmol/L (136-145); Total Protein 6.8 g/dL (5.7-8.2)
[2024-12-11 14:54] LABS: Bilirubin, Total 0.8 mg/dL (0.2-1.0)
[2024-12-11 15:00] LABS: Alanine Aminotransferase 53 U/L (7-40); Glucose 276 mg/dL (74-106); Potassium 3.3 mmol/L (3.5-5.1)
--- NOTE | 2024-12-11 15:17 | DVH ---
Exam: CT CT AB PEL WO CON-NO ORAL OR IV History: r/o pancreatitis Comparison Study: CT CT AB PEL WO CON-NO ORAL OR IV on DOS: 11/13/24 TECHNIQUE: Multidetector CT of the abdomen was performed from lung bases to pubic symphysis. Imaging was performed without IV contrast. Axial, coronal and sagittal multiplanar reformats were obtained fr om the axial data set by the technologist. Radiation Dose Information: CT Dose: CTDI volume is 6.41 mGy. Dose-length product is 342.23 mGy*cm FINDINGS: Evaluation of solid organs is limited due to lack of intravenous contrast use. Findings: Lung Bases: No acute or significant lung base finding. Normal heart size. No pleural or pericardial effusion. Liver: The liver is normal in size. No focal lesions. Gallbladder and Biliary Tree: Unremarkable Spleen: Unremarkable Pancreas: The pancreas is grossly normal in appearance. Adrenal Glands: Unremarkable Kidneys: Kidneys are grossly normal . Punctate nonobstructing calculus left kidney. Bladder: Grossly unremarkable for degree of distention. Bowel: The stomach is grossly normal in appearance. Small bowel and colon are normal in caliber and d istribution. The appendix is not visualized; however, no secondary findings of acute appendicitis id entified. Ascites: Absent Lymphadenopathy: No mesenteric, retroperitoneal or periportal lymphadenopathy. Abdominal Wall and Mesentery: Unremarkable. Vasculature: The visualized abdominal aorta is normal in size and caliber. Evaluation of abdominal a nd pelvic vessels is limited due to lack of intravenous contrast. Pelvic Organs: Prostate measures 5.1 by 4.8 cm Musculoskeletal: No aggressive focal bony lesions, acute fractures or dislocation. Soft tissues: Unremarkable IMPRESSION: 1. Prostate measures 5.1 x 4.[address] findings of bowel obstruction. Possible parenchymal edema of the pancreas no peripancreatic inflammatory changes or fluid collections. No cystic changes to the pancreas. Correlate with lab valu es. Radiation optimization: All CT scans at this facility use at least one of these dose optimization te chniques: automated exposure control mA and/or kV adjustment per patient size (includes targeted exa ms where dose is matched to clinical indication) or iterative reconstruction. HS:Y
[2024-12-11 15:18] LABS: Lipase 46 U/L (12-53)
[2024-12-11 16:17] LABS: Basophils # (auto) 0.1 10 ^3/uL (0-0.2); Basophils % (auto) 0.8 % (0.0-2.0); Eosinophils # (auto) 0.1 10 ^3/uL (0-0.8); Eosinophils % (auto) 0.8 % (0.0-7.0); Hematocrit 44.5 % (41.0-53.0); Hemoglobin 15.4 g/dL (13.5-17.5); Lymphocytes # (auto) 2.5 10 ^3/uL (0.4-5.4); Lymphocytes % (auto) 33.2 % (10.0-50.0); Mean Corpuscular Hgb Conc. 34.5 g/dL (32.0-36.0); Monocytes # (auto) 0.7 10 ^3/uL (0-1.3); Monocytes % (auto) 9.1 % (0.0-12.0); Neutrophils # (auto) 4.2 10 ^3/uL (1.6-8.6); Neutrophils % (auto) 56.1 % (37.0-80.0); Nucleated Red Blood Cells % 0.1 %; Platelet Count (auto) 187 10^3/uL (140-450); Red Cell Distribution Width 14.6 % (11.8-14.3); White Blood Cell 7.5 10^3/uL (4.4-10.8)
[2024-12-11 16:34] LABS: Albumin 4.1 g/dL (3.2-4.8); Alkaline Phosphatase 89 U/L (46-116); Anion Gap 15 (5-15); Bilirubin, Total 0.5 mg/dL (0.2-1.0); Blood Urea Nitrogen 10 mg/dL (9-23); Calcium 8.8 mg/dL (8.7-10.4); Carbon Dioxide 22 mmol/L (20-31); Chloride 103 mmol/L (98-107); Lipase 42 U/L (12-53); Sodium 140 mmol/L (136-145); Total Protein 6.2 g/dL (5.7-8.2)
[2024-12-11 17:01] LABS: Alanine Aminotransferase 48 U/L (7-40); Aspartate Aminotransferase 30 U/L (13-40); Glucose 206 mg/dL (74-106); Potassium 3.2 mmol/L (3.5-5.1)
[2024-12-11] MEDS: InsuLIN REG 1unit/0.01ml Soln (100units/ml) IV ONE (17:15)
[2024-12-11] MEDS: POTASSIUM EFFERVESENT TAB 25 MEQ PO ONE (19:58)
[2024-12-11] MEDS ORDERED: DEXTROSE (50%) 50ML SYRG IV PRN (20:15)
[2024-12-11] MEDS ORDERED: ACETAMINOPHEN 325 MG TAB PO PRN (20:15)
[2024-12-11] MEDS ORDERED: DOCUSATE SOD 100 MG CAP PO PRN (20:15)
--- NOTE | 2024-12-11 20:19 | DVHHP2 ---
Admitting Diagnosis: Abdominal pain History of Present Illness 49 y/o M, with PMHx of alcohol abuse and pancreatitis presents to the ED for CC of abdominal pain. Patient states, he has been experiencing LLQ abdominal pain with associated nausea and vomiting onset, today (12/11/24). 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 Patient denies auditory hallucinations, visual hallucinations, tremors, or diarrhea. No other symptoms or modifying factors present at this time. PAST MEDICAL HISTORY: Denies Surgical History: Denies all surgeries Family History Family History: Unknown Social History Smoker: Non-Smoker Alcohol: Denies ETOH Use Drugs: Denies Drug Use Lives In: Home Allergies: Coded Allergies: NO KNOWN ALLERGIES (Unverified , 05/22/18) Home Meds Active Scripts Ondansetron Odt 4MG Tab (ZOFRAN PO) 4 Mg Tb, 4 MG PO Q4HP PRN for 3 Days, #15 TAB ODT TAB-DISSOLVE IN MOUTH, THEN SWALLOW Prov:ALLAN OG MD 11/13/24 Vital Signs Vital Signs Date Time Temp Pulse Resp B/P (MAP) Pulse Ox O2 Delivery O2 Flow Rate FiO2 12/11/24 18:00 93 13 115/63 (80) 94 12/11/24 14:00 Room Air* 0 21 12/11/24 14:00 98.1 98.1 Physical Exam Generally 59 years old male, well nourished well developed. No apparent distress HEENT: Normocephalic, atraumatic, heart-regular rate rhythm Lungs clear to auscultate bilaterally Abdomen soft, mild tender left lower quadrant, nondistended Musculoskeletal-no edema cyanosis Neuro neuro-AO x3, no focal deficits Results Labs Test 12/11/24 18:26 12/11/24 15:51 12/11/24 14:22 Range/Units POC Glucose 137 H 70-106 mg/dl White Blood Count 7.5 4.4-10.8 10^3/uL Red Blood Count 5.30 4.5-5.90 10^6/uL Hemoglobin 15.4 13.5-17.5 g/dL Hematocrit 44.5 41.0-53.0 % Mean Corpuscular Volume 84.0 80.0-100.0 fL Mean Corpuscular Hemoglobin 29.0 28.0-32.0 pg Mean Corpuscular Hemoglobin Concent 34.5 32.0-36.0 g/dL Red Cell Distribution Width 14.6 H 11.8-14.3 % Platelet Count 187 140-450 10^3/uL Mean Platelet Volume 8.3 6.9-10.8 fL Neutrophils (%) (Auto) 56.1 37.0-80.0 % Lymphocytes (%) (Auto) 33.2 10.0-50.0 % Monocytes (%) (Auto) 9.1 0.0-12.0 % Eosinophils (%) (Auto) 0.8 0.0-7.0 % Basophils (%) (Auto) 0.8 0.0-2.0 % Neutrophils # (Auto) 4.2 1.6-8.6 10 ^3/uL Lymphocytes # (Auto) 2.5 0.4-5.4 10 ^3/uL Monocytes # (Auto) 0.7 0-1.3 10 ^3/uL Eosinophils # (Auto) 0.1 0-0.8 10 ^3/uL Basophils # (Auto) 0.1 0-0.2 10 ^3/uL Nucleated Red Blood Cells 0.1 % Sodium Level 140 136-145 mmol/L Potassium Level 3.2 L 3.5-5.1 mmol/L Chloride Level 103 98-107 mmol/L Carbon Dioxide Level 22 20-31 mmol/L Anion Gap 15 5-15 Blood Urea Nitrogen 10 9-23 mg/dL Creatinine 1.00 0.700-1.30 mg/dL Glomerular Filtration Rate Calc 92 >90 mL/min BUN/Creatinine Ratio 10.0 10.0-20.0 Serum Glucose 206 H 74-106 mg/dL Calcium Level 8.8 8.7-10.4 mg/dL Total Bilirubin 0.5 0.2-1.0 mg/dL Aspartate Amino Transferase (AST) 30 13-40 U/L Alanine Aminotransferase (ALT) 48 H 7-40 U/L Alkaline Phosphatase 89 46-116 U/L Total Protein 6.2 5.7-8.2 g/dL Albumin 4.1 3.2-4.8 g/dL Lipase 42 12-53 U/L Plasma/Serum Blood Alcohol 205.0 H <10 mg/dL Primary Diagnosis Alcoholic gastritis Alcohol intoxication impending withdrawal Plan CT abdomen and pelvis shows no acute infection Alcohol level elevated Patient remains intoxication impending withdrawal Daily CIWA score Alcohol withdrawal protocol p.r.n. PPI for GI prophylaxis Thiamine and folate IV fluids Insulin sliding scale fingerstick 140-180 Full code Regular diet Lovenox for DVT prophylaxis PPI for GI prophylax Plan discussed with: Patient Problems List: (1) Alcohol abuse Status: Acute (2) Uncontrolled diabetes mellitus Status: Acute (3) Alcohol intoxication Status: Acute (4) Epigastric pain Status: Acute Date of Service: December 11, 2024 Billing Provider: DAVIAN LU MD Common Visit Codes: [id number] INP/OBS CARE (MOD) DAVIAN LU MD December 11, 2024 20:19
[2024-12-11] MEDS ORDERED: LORazepam 0.5 MG TAB PO PRN (20:30)
[2024-12-11] MEDS: LACTATED RINGER'S 1,000 ML IV ONE (20:34)
[2024-12-11] MEDS: FOLIC ACID 1 MG TAB PO ONE (20:38)
[2024-12-11] MEDS: MULTIPLE VITAMIN TAB PO ONE (20:38)
[2024-12-11] MEDS: THIAMINE HCL 100 MG TAB PO ONE (20:38)
[2024-12-11 21:30] VITALS: BP 112/72; PULSE 89; RESP 18; TEMP 98.7; O2SAT 99
[2024-12-11 21:36] VITALS: BP 112/72; PULSE 89; RESP 18; TEMP 98.7; O2SAT 99
[2024-12-11] MEDS: InsuLIN REG 1unit/0.01ml Soln (100units/ml) SC SCH (21:37)
[2024-12-11] MEDS: ACCU-CHEK COMFORT CURVE STRIP VI SCH (21:37)
[2024-12-11] MEDS: SODIUM CHLOR 0.9% PF (SALINE LOCK) 10ML VIAL/SYR IV SCH (21:38)
[2024-12-11 22:46] LABS: Barbiturate Scree,Urine Neg (NEGATIVE); Benzodiazephine Screen, Urine Neg (NEGATIVE); Cannabinoid Screen, Urine Neg (NEGATIVE); Cocaine Screen, Urine Neg (NEGATIVE); Opiate Scree,Urine Neg (NEGATIVE); Phencyclidine Screen, Urine Neg (NEGATIVE)
[2024-12-11 23:57] LABS: Amphetamine Screen, Urine Pos (NEGATIVE)
[2024-12-12] MEDS: HYDROmorphone HCL 2 MG/ML VL/or syr IV PRN (03:32)
[2024-12-12 05:49] VITALS: BP 102/71; PULSE 98; RESP 18; TEMP 97.7; O2SAT 97
[2024-12-12] MEDS: LORazepam 2MG/ML-1ML VIAL IV PRN (06:05)
[2024-12-12] MEDS: InsuLIN REG 1unit/0.01ml Soln (100units/ml) SC SCH (06:16)
[2024-12-12 08:34] VITALS: BP 111/65; PULSE 91; RESP 16; TEMP 98.2; O2SAT 96
[2024-12-12] MEDS: THIAMINE HCL 100 MG TAB PO SCH (08:42)
[2024-12-12] MEDS: PANTOPRAZOLE 40 MG/10 ML VIAL INJ IV SCH (08:42)
[2024-12-12] MEDS: FOLIC ACID 1 MG TAB PO SCH (08:42)
[2024-12-12] MEDS: MULTIPLE VITAMIN TAB PO SCH (08:42)
[2024-12-12] MEDS: ENOXAPARIN SOD 40 MG/0.4 ML SYRINGE SC SCH (08:42)
[2024-12-12 10:48] LABS: INR 1.03 (0.9-1.15); Partial Thromboplastin Time 26.4 SEC (24.5-34.5); Prothrombin Time 10.9 sec (9.3-11.8)
[2024-12-12 10:50] LABS: Alkaline Phosphatase 96 U/L (46-116); Anion Gap 10 (5-15); Aspartate Aminotransferase 25 U/L (13-40); BUN/Creatinine Ratio 15.3 (10.0-20.0); Bilirubin, Total 0.9 mg/dL (0.2-1.0); Blood Urea Nitrogen 13 mg/dL (9-23); Chloride 102 mmol/L (98-107); Magnesium 1.9 mg/dL (1.6-2.6); Potassium 4.4 mmol/L (3.5-5.1); Sodium 137 mmol/L (136-145); Total Protein 5.9 g/dL (5.7-8.2)
[2024-12-12 10:51] LABS: Alanine Aminotransferase 47 U/L (7-40); Calcium 9.5 mg/dL (8.7-10.4); Carbon Dioxide 25 mmol/L (20-31); Glucose 266 mg/dL (74-106)
[2024-12-12] MEDS: FOLIC ACID 1 MG, MULTIPLE VITAMIN 10 ML, MAGNESIUM SULF SDV 50% 8 MEQ, THIAMINE INJ 100... INJ SCH (11:10)
[2024-12-12] MEDS ORDERED: IOHEXOL 300 MG/ML 100ML BOTTLE IJ ONE (13:26)
--- NOTE | 2024-12-12 13:28 | DVHPNRES ---
Progress Note Date Seen: December 12, 2024 Resident Creating Document: VICK GARZA RESIDENT Has the PT tested + for MRSA If YES, has PT been informed?: No Medical Necessity Reason Pt with a Central, PICC or Fol: No Subjective Review of Systems Johan Gill Sr. is a 49-year-old male with a past medical history of alcohol abuse and pancreatitis who presented to the Emergency Department with complaints of abdominal pain. The patient reports experiencing left lower quadrant abdominal pain that began earlier today (12/11/24), accompanied by nausea and vomiting. He admits to heavy alcohol consumption over the past week, drinking up to one pint of liquor daily, with his last drink approximately one hour prior to arrival. He denies experiencing auditory or visual hallucinations, tremors, or diarrhea. No additional symptoms or modifying factors were reported at this time.On my assessment patient denies other drug abuse. Patient seen and examined at the bedside. Patient is still reporting having abdominal pain, ordered Carafate and ordered CT abdominal pelvis with contrast. Patient reports: Feels better Objective vital signs Vital Sign Date Time Temp Pulse Resp B/P (MAP) Pulse Ox O2 Delivery O2 Flow Rate FiO2 12/12/24 09:22 70 18 118/69 12/12/24 08:34 98.2 96 98.2 12/11/24 14:00 Room Air* 0 21 Total Intake and Output 12/11/24 12/11/24 12/12/24 15:00 23:00 07:00 Intake Total 1000 ml Balance 1000 ml medications Current Medications Medications Dose Ordered Sig/Elliott Route Start Time Stop Time Status Last Admin Dose Admin Sodium Chloride 10 ml Q8HR IV 12/11/24 22:00 12/12/24 05:48 10 ML Docusate Sodium 100 mg BIDPRN PRN PO 12/11/24 20:15 Acetaminophen 650 mg Q6HP PRN PO 12/11/24 20:15 Acetaminophen/ Hydrocodone Bitart 1 tab Q4HP PRN PO 12/11/24 20:15 Hydromorphone HCl 0.5 mg Q4HP PRN IV 12/11/24 20:15 12/12/24 08:52 0.5 MG Ondansetron HCl 4 mg Q4HP PRN IV 12/11/24 20:15 Enoxaparin Sodium 40 mg DAILY SC 12/12/24 10:00 12/12/24 08:42 40 MG Diagnostic Test (Pha) 1 strip ACHS 12/11/24 22:00 12/12/24 11:30 1 STRIP Insulin Human Regular HS SC 12/11/24 22:00 Insulin Human Regular AC SC 12/12/24 07:00 12/12/24 11:51 9 UNITS Dextrose 50 ml UD PRN IV 12/11/24 20:15 Pantoprazole Sodium 40 mg DAILY IV 12/12/24 10:00 12/12/24 08:42 40 MG Thiamine HCl 100 mg DAILY PO 12/12/24 10:00 Hold 12/12/24 08:42 100 MG Folic Acid 1 mg DAILY PO 12/12/24 10:00 Hold 12/12/24 08:42 1 MG Multivitamins 1 tab DAILY PO 12/12/24 10:00 Hold 12/12/24 08:42 1 TAB Lorazepam 1 mg Q2HPRN PRN IV 12/11/24 20:30 12/12/24 06:05 1 MG Lorazepam 2 mg Q2HPRN PRN PO 12/11/24 20:30 Folic Acid 1 mg/ Multivitamins 10 ml/Magnesium Sulfate 8 meq/ Thiamine HCl 100 mg/Dextrose 1,013.2 ml @ 125.001 mls/hr DAILY@1800 INJ 12/12/24 10:21 12/12/24 11:10 125.001 MLS/HR Sucralfate 1 gm BID@0600,2200 PO 12/12/24 13:00 Examination Pt is lying on bed General Appearance: Alert, Oriented X3, Cooperative, Not in acute distress HEENT: Atraumatic, Mucous membranes moist/pink Respiratory: Clear to auscultation, Normal air movement, No added sounds Cardiovascular: Regular rate, Normal S1, Normal S2, No murmurs Abdominal: Active bowel sounds, Soft, no distention,Mild upper abdominal tenderness Extremities: No edema, Normal pulses, No tenderness/swelling Skin: No Significant rash, except past surgical scars Neuro: Normal speech, sensorimotor deficits none Psych/Mental Status: Mental status NL, Mood NL Nurse was there as sharperone during examination laboratory and microbiology Laboratory Tests 12/12/24 10:23 12/11/24 15:51 Test 12/12/24 10:23 Range/Units Serum Glucose 266 H 74-106 mg/dL Labs and/or images reviewed: Labs reviewed by me, Image(s) reviewed by me Problem List/Assessment/Plan Problem List/Assessment/Plan # Acute alcohol intoxication - IVF - avoid sedatives - multivitamins including thiamine and folic acid - banana bag - monitor for alcohol withdrawal - if patient has started withdrawals based on [facility] protocol we will start Librium or Ativan # Intractable abdominal pain likely gastritis vs other unspecified etiology for now # rule out pancreatitis - Protonix, Carafate - lipase negative - CT abdominal pelvis without contrast showed no acute findings so ordered new CT scan with contrast - pain management # ? amphetamine abuse disorder- counseled regarding cessation of found than 17 minutes Protonix Lovenox Diet liquid Goals of care addressed with the patient for more than 27 minutes: Full code status Case discussed with Dr. Boudreaux, patient and nurse Plan discussed with: Patient My Orders My Orders Orders - VICK GARZA RESIDENT Procedure Category Date Status Time Urinalysis LAB 12/12/24 Logged 09:52 Folic Acid... PHA 12/12/24 In Process 10:21 Sucralfate Susp PHA 12/12/24 In Process (Carafate Susp) 13:00 Ct Ab Pel With Iv Con CT 12/12/24 Logged Only 12:47 Date of Service: December 12, 2024 Billing Provider: GARY BOUDREAUX MD Common Visit Codes: [id number] INP/OBS CARE(HIGH) VICK GARZA RESIDENT December 12, 2024 13:28 GARY BOUDREAUX MD December 12, 2024 23:20
[2024-12-12] MEDS: SUCRALFATE 1 GM/10 ML ORAL SUSP PO SCH (13:38)
[2024-12-12] MEDS: HYDROcodone-ACET 5/325MG TAB PO PRN (13:39)
--- NOTE | 2024-12-12 14:22 | DVH ---
Exam: CT CT AB PEL WITH IV CON ONLY History: Abd pain Comparison Study: None Contrast: Type of contrast: Omni 300 Contrast injected: 100 mL Contrast wasted: 0 TECHNIQUE: A digital chart changer image was obtained. During the uneventful, intravenous administration of c ontrast material, multislice data acquisition was obtained through the abdomen and pelvis. The data s et was subsequently reconstructed into axial images. Images were reviewed on a work station using a c ombination of axial and multiplanar using a variety of window levels and settings. Radiation Dose Information: CT Dose: CTDI volume is 6.4 mGy. Dose-length product is 367.56 mGy*cm FINDINGS: Lung Bases: No acute or significant lung base finding. Normal heart size. No pleural or pericardial effusion. Liver: The liver is normal in size. No focal lesions. Normal hepatic vascular enhancement. CT findin gs consistent with hepatic steatosis. Gallbladder and Biliary Tree: Unremarkable Spleen: Unremarkable Pancreas: The pancreas is normal in appearance without focal lesions or abnormal enhancement. Adrenal Glands: Unremarkable Kidneys: Kidneys demonstrate normal symmetric enhancement without focal lesions, calculi or hydroneph rosis. 13 mm cortical cysts left kidney. Bladder: Unremarkable Bowel: The stomach is distended with food and liquid. Small bowel and colon are normal in caliber and distribution. The appendix is not visualized; however, no secondary findings of acute appendicitis i dentified. Ascites: Absent Lymphadenopathy: No mesenteric, retroperitoneal or periportal lymphadenopathy. Abdominal Wall and Mesentery: Unremarkable. Vasculature: The visualized abdominal aorta is normal in size and caliber. Abdominal and pelvic vess els demonstrate normal enhancement. Pelvic Organs: Unremarkable Musculoskeletal: No aggressive focal bony lesions, acute fractures or dislocation. Soft tissues: Unremarkable. IMPRESSION: 1. 1. Hepatic steatosis 2. 2. No findings of bowel obstruction. 3. 3. 13 mm cortical cyst left kidney. 4. 4. No calcified gallstones. 5. 5. Fluid and food distended stomach. Correlate for recent meal. 6. All CT scans at this medical facility are performed using dose modulation techniques as appropriat e to a performed exam including the following: Automated exposure control was utilized; adjustment of the MA and/or KV according to patient size; and use of iterative reconstruction technique. HS:Y
[2024-12-12 18:05] VITALS: BP 120/82; PULSE 86; PULSE 89; RESP 17; RESP 18; TEMP 98; O2SAT 95
[2024-12-12 19:30] VITALS: RESP 17; O2SAT 98
[2024-12-12 20:00] VITALS: RESP 17; O2SAT 98
[2024-12-12 21:00] VITALS: BP 107/67; PULSE 90; RESP 17; TEMP 98.2; O2SAT 97
[2024-12-12] MEDS: ONDANSETRON HCL 4 MG/2 ML VIAL IV PRN (23:44)
[2024-12-13 01:00] VITALS: BP 112/58; PULSE 85; RESP 16; TEMP 98.1; O2SAT 95
[2024-12-13 05:00] VITALS: BP 100/72; PULSE 90; RESP 17; TEMP 97.8; O2SAT 96
[2024-12-13 06:58] LABS: Basophils # (auto) 0.1 10 ^3/uL (0-0.2); Basophils % (auto) 0.8 % (0.0-2.0); Eosinophils # (auto) 0.1 10 ^3/uL (0-0.8); Eosinophils % (auto) 1.5 % (0.0-7.0); Hematocrit 43.4 % (41.0-53.0); Hemoglobin 15.1 g/dL (13.5-17.5); Lymphocytes % (auto) 28.8 % (10.0-50.0); Mean Corpuscular Hemoglobin 29.1 pg (28.0-32.0); Mean Corpuscular Hgb Conc. 34.7 g/dL (32.0-36.0); Mean Corpuscular Volume 83.7 fL (80.0-100.0); Monocytes # (auto) 0.5 10 ^3/uL (0-1.3); Monocytes % (auto) 7.7 % (0.0-12.0); Neutrophils # (auto) 4.2 10 ^3/uL (1.6-8.6); Neutrophils % (auto) 61.2 % (37.0-80.0); Nucleated Red Blood Cells % 0.2 %; Platelet Count (auto) 152 10^3/uL (140-450); Red Blood Cells 5.18 10^6/uL (4.5-5.90); Red Cell Distribution Width 14.3 % (11.8-14.3); White Blood Cell 6.9 10^3/uL (4.4-10.8)
[2024-12-13 07:07] LABS: Alanine Aminotransferase 38 U/L (7-40); Alkaline Phosphatase 85 U/L (46-116); Anion Gap 9 (5-15); BUN/Creatinine Ratio 11.5 (10.0-20.0); Blood Urea Nitrogen 10 mg/dL (9-23); Calcium 9.2 mg/dL (8.7-10.4); Carbon Dioxide 26 mmol/L (20-31); Chloride 104 mmol/L (98-107); Magnesium 2.2 mg/dL (1.6-2.6); Potassium 3.7 mmol/L (3.5-5.1); Sodium 139 mmol/L (136-145); Total Protein 5.7 g/dL (5.7-8.2)
[2024-12-13 07:08] LABS: Albumin 3.7 g/dL (3.2-4.8); Aspartate Aminotransferase 19 U/L (13-40); Bilirubin, Total 0.8 mg/dL (0.2-1.0)
[2024-12-13 07:21] LABS: Glucose 160 mg/dL (74-106)
[2024-12-13 08:45] VITALS: BP 111/73; PULSE 75; RESP 18; TEMP 98.3; O2SAT 98
--- NOTE | 2024-12-13 11:06 | DVHPNRES ---
Progress Note Date Seen: December 13, 2024 Resident Creating Document: VICK GARZA RESIDENT Has the PT tested + for MRSA If YES, has PT been informed?: No Medical Necessity Reason Pt with a Central, PICC or Fol: No Subjective Review of Systems Patient seen and examined at the bedside. Reported improvement in his abdominal pain since admission. No new complaints at this time. Patient reports: Feels better Objective vital signs Vital Sign Date Time Temp Pulse Resp B/P (MAP) Pulse Ox O2 Delivery O2 Flow Rate FiO2 12/13/24 08:45 98.3 75 18 111/73 (86) 98 98.3 12/13/24 08:05 Room Air* 0 21 Total Intake and Output 12/12/24 12/12/24 12/13/24 15:00 23:00 07:00 Intake Total 375 ml 375 ml 305 ml Balance 375 ml 375 ml 305 ml medications Current Medications Medications Dose Ordered Sig/Elliott Route Start Time Stop Time Status Last Admin Dose Admin Sodium Chloride 10 ml Q8HR IV 12/11/24 22:00 12/13/24 05:11 10 ML Docusate Sodium 100 mg BIDPRN PRN PO 12/11/24 20:15 Acetaminophen 650 mg Q6HP PRN PO 12/11/24 20:15 Acetaminophen/ Hydrocodone Bitart 1 tab Q4HP PRN PO 12/11/24 20:15 12/13/24 09:20 1 TAB Hydromorphone HCl 0.5 mg Q4HP PRN IV 12/11/24 20:15 12/12/24 18:47 0.5 MG Ondansetron HCl 4 mg Q4HP PRN IV 12/11/24 20:15 12/12/24 23:44 4 MG Enoxaparin Sodium 40 mg DAILY SC 12/12/24 10:00 12/13/24 09:19 40 MG Diagnostic Test (Pha) 1 strip ACHS 12/11/24 22:00 12/13/24 05:18 1 STRIP Insulin Human Regular HS SC 12/11/24 22:00 12/12/24 21:37 4 UNITS Insulin Human Regular AC SC 12/12/24 07:00 12/13/24 05:19 2 UNITS Dextrose 50 ml UD PRN IV 12/11/24 20:15 Pantoprazole Sodium 40 mg DAILY IV 12/12/24 10:00 12/13/24 09:19 40 MG Thiamine HCl 100 mg DAILY PO 12/12/24 10:00 Hold 12/12/24 08:42 100 MG Folic Acid 1 mg DAILY PO 12/12/24 10:00 Hold 12/12/24 08:42 1 MG Multivitamins 1 tab DAILY PO 12/12/24 10:00 Hold 12/12/24 08:42 1 TAB Lorazepam 1 mg Q2HPRN PRN IV 12/11/24 20:30 12/12/24 06:05 1 MG Lorazepam 2 mg Q2HPRN PRN PO 12/11/24 20:30 Folic Acid 1 mg/ Multivitamins 10 ml/Magnesium Sulfate 8 meq/ Thiamine HCl 100 mg/Dextrose 1,013.2 ml @ 125.001 mls/hr DAILY@1800 INJ 12/12/24 10:21 12/12/24 11:10 125.001 MLS/HR Sucralfate 1 gm BID@0600,2200 PO 12/12/24 13:00 12/13/24 05:11 1 GM Examination Pt is lying on bed General Appearance: Alert, Oriented X3, Cooperative, Not in acute distress HEENT: Atraumatic, Mucous membranes moist/pink Respiratory: Clear to auscultation, Normal air movement, No added sounds Cardiovascular: Regular rate, Normal S1, Normal S2, No murmurs Abdominal: Active bowel sounds, Soft, no distention, no tenderness Extremities: No edema, Normal pulses, improved abdominal tenderness since yesterday Skin: No Significant rash, except past surgical scars Neuro: Normal speech, sensorimotor deficits none Psych/Mental Status: Mental status NL, Mood NL Nurse was there as sharperone during examination laboratory and microbiology Laboratory Tests 12/13/24 06:09 Test 12/13/24 06:09 Range/Units Serum Glucose 160 #H 74-106 mg/dL Labs and/or images reviewed: Labs reviewed by me, Image(s) reviewed by me Problem List/Assessment/Plan Problem List/Assessment/Plan # Acute alcohol intoxication - IVF - avoid sedatives - multivitamins including thiamine and folic acid - banana bag - monitor for alcohol withdrawal - if patient has started withdrawals based on [facility] protocol we will start Librium or Ativan # Intractable abdominal pain likely gastritis # ruled out pancreatitis - Protonix, Carafate - lipase negative - CT abdominal pelvis without contrast showed no acute findings so ordered new CT scan with contrast which showed hepatic steatosis - pain management # hepatic steatosis - outpatient follow up with GI # ? amphetamine abuse disorder- counseled regarding cessation of found than 17 minutes Protonix Lovenox Diet liquid Goals of care addressed with the patient for more than 27 minutes: Full code status Case discussed with Dr. Marie, patient and nurse Plan discussed with: Patient My Orders My Orders Orders - VICK GARZA Procedure Category Date Status Time Sucralfate Susp PHA 12/12/24 In Process (Carafate Susp) 13:00 Ct Ab Pel With Iv Con CT 12/12/24 Resulted Only 12:47 Date of Service: December 13, 2024 Billing Provider: LUIS MARIE MD Common Visit Codes: [id number] INP/OBS CARE(HIGH) VICK GARZA December 13, 2024 11:06 LUIS MARIE MD December 13, 2024 21:24
[2024-12-13] MEDS ORDERED: chlordiazePOXIDE HCL 5 MG CAP PO PRN (12:15)
[2024-12-13] MEDS: MULTIPLE VITAMIN TAB PO ONE (12:18)
[2024-12-13] MEDS: MAGNESIUM OXIDE 400 MG TAB PO ONE (12:18)
[2024-12-13] MEDS: FOLIC ACID 1 MG TAB PO ONE (12:18)
[2024-12-13] MEDS: THIAMINE HCL 100 MG TAB PO ONE (12:18)
[2024-12-13 12:51] VITALS: BP 118/89; PULSE 82; RESP 18; TEMP 98.3; O2SAT 96
[2024-12-13 12:52] LABS: Urine Bacteria None Seen /hpf (None Seen)
[2024-12-13 13:10] LABS: Urine Blood Negative /uL (Negative); Urine Clarity Clear (Clear); Urine Color Yellow (Yellow); Urine Mucus FEW (None Seen); Urine Protein, UAD TRACE (Negative); Urine Specific Gravity 1.036 (1.001-1.035); Urine Squamous Epithelial Cell None Seen /hpf (<5); Urine Urobilinogen Normal (Negative); Urine WBC 1 /HPF (0-3)
[2024-12-13 16:43] VITALS: BP 109/73; PULSE 82; RESP 18; TEMP 98; O2SAT 95
[2024-12-13 21:00] VITALS: BP 131/81; PULSE 67; RESP 20; TEMP 98.1; O2SAT 98
[2024-12-14 01:00] VITALS: BP 122/67; PULSE 84; RESP 20; TEMP 98.1; O2SAT 99
[2024-12-14 05:00] VITALS: BP 115/74; PULSE 73; RESP 20; TEMP 98; O2SAT 99
[2024-12-14 09:00] VITALS: BP 129/88; PULSE 85; RESP 16; TEMP 98.8; O2SAT 97
[2024-12-14] MEDS: MULTIPLE VITAMIN TAB PO SCH (09:54)
[2024-12-14] MEDS: MAGNESIUM OXIDE 400 MG TAB PO SCH (09:54)
[2024-12-14] MEDS: FOLIC ACID 1 MG TAB PO SCH (09:54)
[2024-12-14] MEDS: THIAMINE HCL 100 MG TAB PO SCH (09:55)
[2024-12-14 13:00] VITALS: BP 100/57; PULSE 105; RESP 17; TEMP 99.1; O2SAT 94
[2024-12-14] MEDS ORDERED: SUCR1SUS26 PO (15:40)
[2024-12-14] MEDS ORDERED: PANT40TA2 PO (15:40)
--- NOTE | 2024-12-14 15:42 | DVHDSRES ---
Discharge Summary Date of Admission Resident Creating Document: VICK GARZA RESIDENT December 11, 2024 at 20:21 Date of Discharge: December 14, 2024 Admitting Diagnosis Intoxication alcohol Labs/Diagnostic Data: Laboratory Results Test 12/14/24 11:34 12/13/24 11:30 12/13/24 06:09 12/12/24 10:23 POC Glucose 296 mg/dl (70-106) Urine Color Yellow (Yellow) Urine Clarity Clear (Clear) Urine pH 6.0 (5.0-9.0) Urine Specific [place] 1.036 (1.001-1.035) Urine Protein Trace (Negative) Urine Ketones Negative (Negative) Urine Blood Negative /uL (Negative) Urine Nitrite Negative (Negative) Urine Bilirubin Negative (Negative) Urine Urobilinogen Normal mg/dL (Negative) Urine Leukocyte Esterase Negative /uL (Negative) Urine RBC 2 /hpf (0 - 3) Urine Microscopic WBC 1 /HPF (0-3) Urine Squamous Epithelial Cells None seen /hpf (<5) Urine Bacteria None seen /hpf (None Seen) Urine Mucus Few (None Seen) Urine Glucose 4+ mg/dL (Normal) White Blood Count 6.9 10^3/uL (4.4-10.8) Red Blood Count 5.18 10^6/uL (4.5-5.90) Hemoglobin 15.1 g/dL (13.5-17.5) Hematocrit 43.4 % (41.0-53.0) Mean Corpuscular Volume 83.7 fL (80.0-100.0) Mean Corpuscular Hemoglobin 29.1 pg (28.0-32.0) Mean Corpuscular Hemoglobin Concent 34.7 g/dL (32.0-36.0) Red Cell Distribution Width 14.3 % (11.8-14.3) Platelet Count 152 10^3/uL (140-450) Mean Platelet Volume 8.5 fL (6.9-10.8) Neutrophils (%) (Auto) 61.2 % (37.0-80.0) Lymphocytes (%) (Auto) 28.8 % (10.0-50.0) Monocytes (%) (Auto) 7.7 % (0.0-12.0) Eosinophils (%) (Auto) 1.5 % (0.0-7.0) Basophils (%) (Auto) 0.8 % (0.0-2.0) Neutrophils # (Auto) 4.2 10 ^3/uL (1.6-8.6) Lymphocytes # (Auto) 2.0 10 ^3/uL (0.4-5.4) Monocytes # (Auto) 0.5 10 ^3/uL (0-1.3) Eosinophils # (Auto) 0.1 10 ^3/uL (0-0.8) Basophils # (Auto) 0.1 10 ^3/uL (0-0.2) Nucleated Red Blood Cells 0.2 % Sodium Level 139 mmol/L (136-145) Potassium Level 3.7 mmol/L (3.5-5.1) Chloride Level 104 mmol/L (98-107) Carbon Dioxide Level 26 mmol/L (20-31) Anion Gap 9 (5-15) Blood Urea Nitrogen 10 mg/dL (9-23) Creatinine 0.87 mg/dL (0.700-1.30) Glomerular Filtration Rate Calc 105 mL/min (>90) BUN/Creatinine Ratio 11.5 (10.0-20.0) Serum Glucose 160 mg/dL (74-106) Calcium Level 9.2 mg/dL (8.7-10.4) Magnesium Level 2.2 mg/dL (1.6-2.6) Total Bilirubin 0.8 mg/dL (0.2-1.0) Aspartate Amino Transferase (AST) 19 U/L (13-40) Alanine Aminotransferase (ALT) 38 U/L (7-40) Alkaline Phosphatase 85 U/L (46-116) Total Protein 5.7 g/dL (5.7-8.2) Albumin 3.7 g/dL (3.2-4.8) Prothrombin Time 10.9 sec (9.3-11.8) Prothrombin Time INR 1.03 (0.9-1.15) Activated Partial Thromboplast Time 26.4 SEC (24.5-34.5) Hemoglobin A1c 8.8 % A1C (<5.7) Thyroid Stimulating Hormone (TSH) 1.50 uIU/mL (0.55-4.78) Plasma/Serum Blood Alcohol < 3.0 mg/dL (<10) Test 12/11/24 20:27 12/11/24 15:51 Urine Opiates Screen Neg (NEGATIVE) Urine Fentanyl Screen Pos (NEGATIVE) Urine Barbiturates Screen Neg (NEGATIVE) Urine Phencyclidine Screen Neg (NEGATIVE) Urine Amphetamines Screen Pos (NEGATIVE) Urine Benzodiazepines Screen Neg (NEGATIVE) Urine Cocaine Screen Neg (NEGATIVE) Urine Cannabinoids Screen Neg (NEGATIVE) Lipase 42 U/L (12-53) Other Laboratory Tests 12/13/24 06:09 Brief Hx & Hospital Course: Johan Gill Sr. is a 49-year-old male with a history of alcohol abuse and pancreatitis who was admitted with complaints of intractable abdominal pain and symptoms consistent with acute alcohol intoxication. On presentation, he reported left lower quadrant abdominal pain, nausea, and vomiting, with recent heavy alcohol consumption. Initial management included intravenous fluids, avoidance of sedatives, and administration of multivitamins including thiamine and folic acid via a banana bag. The patient was closely monitored for signs of alcohol withdrawal. Ativan was initially administered but later discontinued. CIWA protocol was in place, and Librium was planned as needed if withdrawal symptoms emerged. Abdominal pain was attributed to likely gastritis. Pancreatitis was ruled out with a negative lipase level. A CT scan of the abdomen and pelvis without contrast showed no acute findings; a follow-up CT with contrast revealed hepatic steatosis. The patient was managed with Protonix and Carafate for gastritis and received appropriate pain control. Lovenox was administered for prophylaxis. He was counseled for over 17 minutes regarding cessation of alcohol and possible amphetamine use, with resources provided. Outpatient follow-up with gastroenterology was recommended for hepatic steatosis. At the time of discharge, the patient was hemodynamically stable, his condition had improved, and he was deemed fit for discharge home with optimal medical therapy. He was advised on healthy lifestyle modifications including diet and exercise and instructed to follow up with his primary care provider. Pt is lying on bed General Appearance: Alert, Oriented X3, Cooperative, Not in acute distress HEENT: Atraumatic, Mucous membranes moist/pink Respiratory: Clear to auscultation, Normal air movement, No added sounds Cardiovascular: Regular rate, Normal S1, Normal S2, No murmurs Abdominal: Active bowel sounds, Soft, no distention, no tenderness Extremities: No edema, Normal pulses, No tenderness/swelling Skin: No Significant rash, except past surgical scars Neuro: Normal speech, sensorimotor deficits none Psych/Mental Status: Mental status NL, Mood NL Nurse was there as sharperone during examination Operations or Procedures CT CT AB PEL WITH IV CON ONLY History: Abd pain IMPRESSION: 1. 1. Hepatic steatosis 2. 2. No findings of bowel obstruction. 3. 3. 13 mm cortical cyst left kidney. 4. 4. No calcified gallstones. 5. 5. Fluid and food distended stomach. Correlate for recent meal. --- CT CT AB PEL WO CON-NO ORAL OR IV IMPRESSION: 1. Prostate measures 5.1 x 4.[address] findings of bowel obstruction. Possible parenchymal edema of the pancreas no peripancreatic inflammatory changes or fluid collections. No cystic changes to the pancreas. Correlate with lab values. Condition at Discharge: Stable Final Diagnosis/Problems List # Acute alcohol intoxication/ dependence/ abuse disorder # Intractable abdominal pain likely gastritis # ruled out pancreatitis # hepatic steatosis # ? amphetamine abuse disorder- counseled regarding cessation of found than 17 minutes Discharge Disposition: Home Discharge Instruct/Medications Diet: Consistent carbohydrate, Cardiac 2g Na,low cholest Activity: No Restrictions, As Tolerated Follow Up/Referral: PCP Medications: Protonix, Carafate as described Resume home medications Discharge Statement: "Patient was advised to return to the ER or call 911 if any headaches, dizziness, shortness of breath, chest pain, abdominal pain, bleeding, fevers, or worsening of medical condition. Patient was counseled about treatment plan, medications, possible side effects, patientverbalized understanding. All questions were answered to the best of my ability. This discharge took greater then 30 minutes in planning, reviewing documentation, counseling the patient, and discussing with other team members." ASSESSMENT ASSESSMENT Assessment # Acute alcohol intoxication/ dependence/ abuse disorder # Intractable abdominal pain likely gastritis # ruled out pancreatitis # hepatic steatosis # ? amphetamine abuse disorder- counseled regarding cessation of found than 17 minutes Date of Service: December 14, 2024 Billing Provider: LUIS MARIE MD Common Visit Codes: [id number] DISCH DAY >30min VICK GARZA December 14, 2024 15:42 LUIS MARIE MD December 14, 2024 19:58
[2024-12-14 16:40] VITALS: BP 100/57; RESP 17; TEMP 37.3
== END 2024-12-14 18:15 | disposition home or self-care (01) | DRG 241 ==
LOC: ER 13:28 → OVERFLOW 20:21 → WEST WING 12-12 18:06
PROVIDERS: ADMIT Internal Medicine Geriatric Medicine; ATTEND Internal Medicine
DX: K29.20 Alcoholic gastritis without bleeding (principal); N17.0 Acute kidney failure with tubular necrosis; K76.0 Fatty (change of) liver, not elsewhere classified; E11.9 Type 2 diabetes mellitus without complications; F10.229 Alcohol dependence with intoxication, unspecified; F15.10 Other stimulant abuse, uncomplicated; Z79.899 Other long term (current) drug therapy; Z71.51 Drug abuse counseling and surveillance of drug abuser; Y90.7 Blood alcohol level of 200-239 mg/100 ml
CPT/HCPCS: 36415; 74176; 74177; 80053; 80307; 80320; 81001; 82962; 83036; 83690; 83735; 84443; 85025; 85610; 85730; 96361; 96374; 96375; 99291; G0378; J1815; J2405; J2470

== ENCOUNTER 2025-01-18 22:06 | Emergency (ER) | payer MEDICAID ==
[~2025-01-18] VITALS: Ht 177.8 cm; Wt 100.0 kg
[~2025-01-18 22:06] MED LIST changes: +PANT40TA2 PO; +SUCR1SUS26 PO; -ZOFR4T PO
[2025-01-18 22:27] LABS: Urine Protein, UAD Negative (Negative)
[2025-01-18 22:44] LABS: Hematocrit 41.4 % (41.0-53.0); Hemoglobin 14.7 g/dL (13.5-17.5); Mean Corpuscular Hemoglobin 29.5 pg (28.0-32.0); Mean Corpuscular Volume 83.3 fL (80.0-100.0); Nucleated Red Blood Cells % 0.3 %
[2025-01-18 23:03] LABS: Albumin 4.7 g/dL (3.2-4.8); Alkaline Phosphatase 92 U/L (46-116); Anion Gap 13 (5-15); BUN/Creatinine Ratio 8.5 (10.0-20.0); Blood Urea Nitrogen 9 mg/dL (9-23); Calcium 10.0 mg/dL (8.7-10.4); Carbon Dioxide 24 mmol/L (20-31); Potassium 3.9 mmol/L (3.5-5.1); Sodium 145 mmol/L (136-145); Total Protein 7.0 g/dL (5.7-8.2)
[2025-01-18 23:04] LABS: Bilirubin, Total 0.6 mg/dL (0.2-1.0)
[2025-01-18 23:06] LABS: Alanine Aminotransferase 45 U/L (7-40); Chloride 108 mmol/L (98-107); Glucose 181 mg/dL (74-106)
--- NOTE | 2025-01-18 23:21 | ED.PDOC ---
History of Present Illness HPI Comments 49 y/o M is BIBA for 3x day history of 8/10 nonradiating, LLQ abdominal pain. Per EMS report, patient endorses on worsening pain, today, after being evaluated and discharged from [facility], this morning, for it. Patient states on being found septic and with kidney stones during previous aforementioned hospital visit. Significant history of DM, enterocolitis, pancreatitis, hepatic steatosis, and polysubstance abuse. Denies any nausea, vomiting, diarrhea, constipation, urinary symptoms, or further associated symptoms. Chief Complaint: Abdominal Pain Time Seen by MD: 22:10 Primary Care Provider: CRISTIN Garcia Notes: Nurses Notes, Foundation Assistant Notes, Medications, Allergies Allergies: Coded Allergies: NO KNOWN ALLERGIES (Unverified , 05/22/18) Home Meds Active Scripts Sucralfate (CARAFATE SUSP) 1 Gm/10 Ml Ss, 10 ML PO BID for 30 Days, #600 ML 1 Refill Prov:VICK GARZA RESIDENT 12/14/24 Pantoprazole Sodium Sesquihydr (Protonix) 40 Mg Tab, 40 MG PO DAILY for 30 Days, #30 TAB Prov:VICK GARZA RESIDENT 12/14/24 Information Source: Patient, Emergency Med Personnel Mode of Arrival: EMS Severity: Moderate Timing: Days Duration: Since onset Prehospital treatment: 12 Lead EKG, Head Machinist Past Medical History PAST MEDICAL HISTORY: DM, Kidney Stones Past Medical History (Other): enterocolitis pancreatitis hepatic steatosis sepsis Surgical History: Denies all surgeries Family History Family History: Unknown Social History Smoker: Cigarettes Alcohol: Heavy Drugs: Cocaine, Methamphetamine, Other (Xanax ) Lives In: Home All Other Systems: Reviewed and Negative (Comprehensive systems review obtained and negative except for what is stated in the HPI.) Physical Exam General Appearance: No Apparent Distress, Obese HEENT: Normal ENT Inspection, Pharynx Normal, TMs Normal Neck: Full Range of Motion, Non-Tender, Normal, Normal Inspection Respiratory: Chest Non-Tender, Lungs Clear, No Accessory Muscle Use, No Respiratory Distress, Normal Breath Sounds Cardiovascular: No Edema, No JVD, No Murmur, No Gallop, Normal Peripheral Pulses, Regular Rate/Rhythm Breast Exam: Deferred Gastrointestinal: LLQ (tenderness ), No Organomegaly, No Pulsatile Mass, Normal Bowel Sounds, Soft, Tenderness (LLQ region ) Genitalia: Deferred Pelvic: Deferred Rectal: Deferred Extremities: No calf tenderness, Normal capillary refill, Normal inspection, Normal range of motion, Non-tender, No pedal edema Musculoskeletal : Apperance: Normal Neurologic: Alert, cloth seconds sorter II-XII nml as Tested, No Motor Deficits, Normal Affect, Normal Mood, No Sensory Deficits Cerebellar Function: Normal Reflexes: Normal Skin: Dry, Normal Color, Warm Lymphatic: No Adenopathy Was a procedure done? Was a procedure done?: No Differential Dx Considerations may include: diverticulitis, pyelonephritis, cystitis, nephrolithiasis, musculoskeletal pain, sepsis, viral syndrome, among others X-Ray, Labs, Meds, VS Vital Signs Date Time Temp Pulse Resp B/P (MAP) Pulse Ox O2 Delivery O2 Flow Rate FiO2 01/19/25 00:37 99.4 100 16 117/83 (94) 95 99.4 01/19/25 00:36 100 16 117/83 01/18/25 23:58 99.5 117 18 109/75 (86) 95 99.5 01/18/25 23:58 117 18 95 Room Air 01/18/25 23:56 117 18 109/75 01/18/25 22:10 98.7 18 18 122/78 (93) 99 98.7 Lab Test 01/18/25 22:31 01/18/25 22:10 Range/Units White Blood Count 7.3 4.4-10.8 10^3/uL Red Blood Count 4.97 4.5-5.90 10^6/uL Hemoglobin 14.7 13.5-17.5 g/dL Hematocrit 41.4 41.0-53.0 % Mean Corpuscular Volume 83.3 80.0-100.0 fL Mean Corpuscular Hemoglobin 29.5 28.0-32.0 pg Mean Corpuscular Hemoglobin Concent 35.4 32.0-36.0 g/dL Red Cell Distribution Width 14.0 11.8-14.3 % Platelet Count 187 140-450 10^3/uL Mean Platelet Volume 7.7 6.9-10.8 fL Neutrophils (%) (Auto) 70.9 37.0-80.0 % Lymphocytes (%) (Auto) 21.4 10.0-50.0 % Monocytes (%) (Auto) 6.7 0.0-12.0 % Eosinophils (%) (Auto) 0.5 0.0-7.0 % Basophils (%) (Auto) 0.5 0.0-2.0 % Neutrophils # (Auto) 5.2 1.6-8.6 10 ^3/uL Lymphocytes # (Auto) 1.6 0.4-5.4 10 ^3/uL Monocytes # (Auto) 0.5 0-1.3 10 ^3/uL Eosinophils # (Auto) 0 0-0.8 10 ^3/uL Basophils # (Auto) 0 0-0.2 10 ^3/uL Nucleated Red Blood Cells 0.3 % Sodium Level 145 136-145 mmol/L Potassium Level 3.9 3.5-5.1 mmol/L Chloride Level 108 H 98-107 mmol/L Carbon Dioxide Level 24 20-31 mmol/L Anion Gap 13 5-15 Blood Urea Nitrogen 9 9-23 mg/dL Creatinine 1.06 0.700-1.30 mg/dL Glomerular Filtration Rate Calc 86 >90 mL/min BUN/Creatinine Ratio 8.5 L 10.0-20.0 Serum Glucose 181 H 74-106 mg/dL Lactic Acid Level 1.6 0.4-2.0 mmol/L Calcium Level 10.0 8.7-10.4 mg/dL Total Bilirubin 0.6 0.2-1.0 mg/dL Aspartate Amino Transferase (AST) 37 13-40 U/L Alanine Aminotransferase (ALT) 45 H 7-40 U/L Alkaline Phosphatase 92 46-116 U/L Total Protein 7.0 5.7-8.2 g/dL Albumin 4.7 3.2-4.8 g/dL Urine Color Light-yellow Yellow Urine Clarity Clear Clear Urine pH 5.5 5.0-9.0 Urine Specific [place] 1.008 1.001-1.035 Urine Protein Negative Negative Urine Ketones Negative Negative Urine Blood 1+ H Negative /uL Urine Nitrite Negative Negative Urine Bilirubin Negative Negative Urine Urobilinogen Normal Negative mg/dL Urine Leukocyte Esterase Negative Negative /uL Urine RBC 1 0 - 3 /hpf Urine Microscopic WBC < 1 0-3 /HPF Urine Squamous Epithelial Cells None seen <5 /hpf Urine Bacteria None seen None Seen /hpf Urine Glucose 1+ H Normal mg/dL Current Medications Medications (Trade) Dose Ordered Sig/Elliott Route Start Time Stop Time Status Last Admin Sodium Chloride 1,000 ml @ 1,000 mls/hr Q1H ONCE IV 01/18/25 22:30 01/18/25 23:29 DC 01/18/25 23:54 Ondansetron HCl (Zofran) 4 mg ONCE ONCE IV 01/18/25 22:30 01/18/25 22:31 DC 01/18/25 23:54 Morphine Sulfate 4 mg ONCE ONCE IV 01/18/25 22:30 01/18/25 22:31 DC 01/18/25 23:56 Time of 1ST Reevaluation: 22:40 Reevaluation 1ST: Unchanged Patient Education/Counseling: Diagnosis, Treatment, Other (need for admission ) Family Education/Counseling: No Family Present Additional Information Previous visits reviewed: November 13, 2024 and December 11, 2024 encounters for enterocolitis and alcohol intoxication. The following tests were ordered, and results were reviewed by me: CT abdomen/pelvis w/IV contrast, lactic acid w/ reflex, CMP, CBC, UA Additional Information was gathered from interviewing the following independent historians: N/A I reviewed and agreed with the following test results read by other providers: CT abdomen/pelvis w/IV contrast I discussed treatment and results with medical personnel and: patient SEPSIS Sepsis Screen Date sepsis recognized/suspect: Jan 18, 2025 Time Sepsis recognized/suspect: 2209 Recent Procedure: No On Antibiotic Therapy: No Respiratory Rate >20: No Heart Rate >90: No Temp<36 C (96.8 F) or >38.3 C: No SBP <90 or MAP <65 mmHG: No New Acute Mental Status Change: No Is the patient on CPAP, BIPAP,: No Physician Orders Ct Ab Pel With Iv Con Only (01/18/25 22:19) Saline Lock (01/18/25 23:42) Vital Signs Date Time Temp Pulse Resp B/P (MAP) Pulse Ox O2 Delivery O2 Flow Rate FiO2 01/19/25 00:37 99.4 100 16 117/83 (94) 95 99.4 01/19/25 00:36 100 16 117/83 01/18/25 23:58 99.5 117 18 109/75 (86) 95 99.5 01/18/25 23:58 117 18 95 Room Air 01/18/25 23:56 117 18 109/75 01/18/25 22:10 98.7 18 18 122/78 (93) 99 98.7 Laboratory Tests Test 01/18/25 22:31 Lactic Acid Level 1.6 mmol/L (0.4-2.0) White Blood Count 7.3 10^3/uL (4.4-10.8) Medications Medications Dose Ordered Sig/Elliott Route Start Time Stop Time Status Last Admin Dose Admin Morphine Sulfate 4 mg ONCE ONCE IV 01/18/25 22:30 01/18/25 22:31 DC 01/18/25 23:56 Ondansetron HCl 4 mg ONCE ONCE IV 01/18/25 22:30 01/18/25 22:31 DC 01/18/25 23:54 Sodium Chloride 1,000 ml @ 1,000 mls/hr Q1H ONCE IV 01/18/25 22:30 01/18/25 23:29 DC 01/18/25 23:54 Departure 1 Departure Time of Disposition: 01:27 (Patient presented with abdominal pain that was concerning for possible appendicits, gastritis, cholecystitis, colitis, gastroenteritis, or orther possible surgical emergency. Data: 1. I ordered and reviewed the result of at least 3 labs including a CBC, BMP, and Urinalysis. 2. I independently interpreted the following tests: CT Abdoment and Pelvis is concerning for benign abdomen .Risk:This patient has a high risk of morbidity due to further diagnostic testing or treatment and may suffer from an acute abdominal process disorder. Fortunately workup reveals benign abdomen and patient can be safely discharged to home with outpatient follow up.) Impression: Primary Impression: Abdominal pain Qualified Codes: R10.32 - Left lower quadrant pain Disposition: HOME / SELF CARE / HOMELESS Condition: Stable Additional Instructions: Your workup today was benign. You can take Tylenol or Motrin as needed for pain. You should follow up with your regular doctor within 1 week. You should stay well rested and well hydrated. If your symptoms worsen or you have any other concerns please return to the emergency room. Discharged With: Self Critical Care Note Critical Care Time?: Yes Critical care comment: Intractable abdominal pain Authorized and Performed by: Winnie Snider MD Total critical care time: Approximately 44 minutes Due to a high probability of clinically significant, life threatening deterioration, the patient required my highest level of preparedness to intervene emergently and I personally spent this critical care time directly and personally managing the patient. This critical care time included obtaining a history; examining the patient; pulse oximetry; ordering and review of studies; arranging urgent treatment with development of a management plan; evaluation of patient's response to treatment; frequent reassessment; and, discussions with other providers. This critical care time was performed to assess and manage the high probability of imminent, life-threatening deterioration that could result in multi-organ failure. It was exclusive of separately billable procedures and treating other patients and teaching time. Please see my other sections and the rest of the note for further information on patient assessment and treatment. Stability Stability form required: No Heart Score Heart Score: Heart Score Response (Comments) Value History N/A 0 EKG N/A 0 Age N/A 0 Risk Factors N/A 0 Troponin N/A 0 Total 0 I personally scribed for WINNIE SNIDER MD ([email or web address]) on 01/18/25 at 23:21. Electronically submitted by Lemuel Abdalla ([email or web address]). I personally scribed for WINNIE SNIDER MD ([email or web address]) on 01/18/25 at 23:23. Electronically submitted by Lemuel Abdalla ([email or web address]). WINNIE SNIDER MD Jan 18, 2025 23:21
[2025-01-18] MEDS: ONDANSETRON HCL 4 MG/2 ML VIAL IV ONE (23:54)
[2025-01-18] MEDS: SODIUM CHLORIDE 0.9% 1,000 ML IV ONE (23:54)
[2025-01-18] MEDS: MORPHINE SULFATE 4 MG/ML SYR/VIAL IV ONE (23:56)
[2025-01-19] MEDS: IOHEXOL 350 MG/ML 100ML IJ ONE (00:03)
[2025-01-19 00:37] VITALS: BP 117/83; PULSE 100; RESP 16; TEMP 99.4; O2SAT 95
--- NOTE | 2025-01-19 01:17 | DVH ---
Exam: CT CT AB PEL WITH IV CON ONLY History: abdominal pain COMPARISON: CT CT AB PEL WITH IV CON ONLY on DOS: 12/12/24 Technique: Multidetector spiral CT of the abdomen and pelvis was performed from lung bases to pubic s ymphysis. Intravenous contrast was administered during this examination. Portal venous imaging was o btained. Axial, coronal and sagittal multiplanar reformats were performed by the technologist on a [employer] workstation. Radiation Dose : 1. Abdomen/Pelvis: CTDIvol 8.16 mGy, DLP 437.11 mGy*cm. CONTRAST: Type of contrast: Omnipaque 300 Contrast injected: 99 ml Findings: Lung Bases: Trace right pleural effusion. Otherwise, no acute or significant lung base finding. Norm al heart size. No pericardial effusion. Liver: The liver is normal in size. No focal lesions. Normal hepatic vascular enhancement. Gallbladder and Biliary Tree: Unremarkable Spleen: Unremarkable Pancreas: The pancreas is normal in appearance without focal lesions or abnormal enhancement. Adrenal Glands: Unremarkable Kidneys: No hydronephrosis or nephrolithiasis. 1.6 cm left interpolar renal cortical cyst. Bladder: Unremarkable Bowel: Small hiatal hernia. The stomach is grossly normal in appearance. Small bowel and colon are no rmal in caliber and distribution. The appendix is normal. Ascites: Absent Lymphadenopathy: No mesenteric, retroperitoneal or periportal lymphadenopathy. Abdominal Wall and Mesentery: Small fat containing umbilical hernia. Vasculature: The visualized abdominal aorta is normal in size and caliber. Abdominal and pelvic vess els demonstrate normal enhancement. Pelvic Organs: Unremarkable Musculoskeletal: No aggressive focal bony lesions, acute fractures or dislocation. IMPRESSION: 1. No acute abdominal or pelvic finding. 2. Trace right pleural effusion. 3. Small hiatal hernia. Radiation optimization: All CT scans at this facility use at least one of these dose optimization genesis hniques: automated exposure control mA and/or kV adjustment per patient size (includes targeted exam s where dose is matched to clinical indication) or iterative reconstruction.
== END 2025-01-19 01:33 | disposition home or self-care (01) ==
LOC: ER 22:06 → EDBD 22:06 → ER 01-19 01:33
DX: R10.32 Left lower quadrant pain (principal); F12.90 Cannabis use, unspecified, uncomplicated; F19.90 Other psychoactive substance use, unspecified, uncomplicated; F17.210 Nicotine dependence, cigarettes, uncomplicated; E11.9 Type 2 diabetes mellitus without complications; K76.0 Fatty (change of) liver, not elsewhere classified; Z79.899 Other long term (current) drug therapy; Z87.19 Personal history of other diseases of the digestive system; Z87.440 Personal history of urinary (tract) infections; Z87.898 Personal history of other specified conditions
CPT/HCPCS: 36415; 74177; 80053; 81001; 82947; 83605; 85025; 96361; 96374; 96375; 99285; J2270; J2405; J7030; Q9967

== ENCOUNTER 2025-01-21 16:18 | Inpatient (IN) | payer MEDICAID ==
[~2025-01-21] VITALS: Ht 182.9 cm; Wt 89.3 kg
--- NOTE | 2025-01-21 16:35 | ECG ---
[facility] Test Date: 2025-01-21 Test Time: 16:32:04 Pat Name: LATASHA DELANEY Department: ER Room: Gender: M Visual Designer: NHI : 1975 Requested By: FRANCESCA KEN Order Number: [id number] Reading MD: Measurements Intervals [place] Rate: 116 P: 81 [place]: 135 QRS: 26 QRSD: 71 T: 64 QT: 332 QTc: 462 Interpretive Statements Sinus tachycardia Consider left ventricular hypertrophy Please click the below link to view image of tracing.
--- NOTE | 2025-01-21 16:38 | ED.PDOC ---
History of Present Illness HPI Comments 49-year-old male came to the ER stating that he has been having abdominal pain nausea vomiting since this morning. He was admitted for possible sepsis few weeks ago for which she was admitted in the hospital discharged a week ago. Patient states that he never really got better after he was discharged. He does have a history of diabetes for which he is to take metformin but switched to insulin but never picked up his insulin medication after he left this hospital. Blood sugar on arrival was 333. Denies any other symptoms. Chief Complaint: Abdominal Pain Time Seen by MD: 16:29 Primary Care Provider: CRISTIN Reviewed Notes: Nurses Notes, Medications, Allergies Allergies: Coded Allergies: NO KNOWN ALLERGIES (Unverified , 05/22/18) Home Meds Active Scripts Sucralfate (CARAFATE SUSP) 1 Gm/10 Ml Ss, 10 ML PO BID for 30 Days, #600 ML 1 Refill Prov:VICK GARZA RESIDENT 12/14/24 Pantoprazole Sodium Sesquihydr (Protonix) 40 Mg Tab, 40 MG PO DAILY for 30 Days, #30 TAB Prov:VICK GARZA RESIDENT 12/14/24 Information Source: Patient Mode of Arrival: Ambulatory Severity: Moderate Timing: Hours Duration: Since onset Past Medical History PAST MEDICAL HISTORY: DM, Kidney Stones Surgical History: Denies all surgeries Family History Family History: Unknown Social History Smoker: Cigarettes Alcohol: Heavy Drugs: Cocaine, Methamphetamine, Other Lives In: Home Constitutional: denies: chills, diaphoresis, fatigue, fever, malaise, sweats, weakness, others EENTM: denies: blurred vision, double vision, ear bleeding, ear discharge, ear drainage, ear pain, ear ringing, eye pain, eye redness, hearing loss, mouth pain, mouth swelling, nasal discharge, nose bleeding, nose congestion, nose pain, photophobia, tearing, throat pain, throat swelling, voice changes, others Respiratory: denies: cough, hemoptysis, orthopnea, SOB at rest, shortness of breath, SOB with excertion, stridor, wheezing, others Cardiovascular: denies: chest pain, dizzy spells, diaphoresis, Dyspnea on exertion, edema, irregular heart beat, left arm pain, lightheadedness, palpit ations, PND, syncope, others Gastrointestinal: reports: abdominal pain, nausea, vomiting; denies: abdomen distended, blood streaked bowels, constipated, diarrhea, dysphagia, difficulty swallowing, hematemesis, melena, poor appetite, poor fluid intake, rectal bleeding, rectal pain, others Genitourinary: denies: burning, dysuria, flank pain, frequency, hematuria, incontinence, penile discharge, penile sore, pain, testicle pain, testicle swelling, urgency, others Neurological: denies: dizziness, fainting, headache, left sided numbness, left sided weakness, numbness, paresthesia, pre-existing deficit, right sided numbness, right sided weakness, seizure, speech problems, tingling, tremors, weakness, others Musculoskeletal: denies: back pain, gout, joint pain, joint swelling, muscle pain, muscle stiffness, neck pain, others Integumetry: denies: bruises, change in color, change in hair/nails, dryness, laceration, lesions, lumps, rash, wounds, others Allergic/Immunocompromised: denies: Difficulty Healing, Frequent Infections, Hives, Itching, others Hematologic/Lymphatic: denies: anemia, blood clots, easy bleeding, easy bruising, swollen glands, others Endocrine: denies: excessive hunger, excessive sweating, excessive thirst, excessive urination, flushing, intolerance to cold, intolerance to heat, unexplained weight gain, unexplained weight loss, others Psychiatric: denies: anxiety, bipolar disorder, depression, hopeless, panic disorder, schizophrenia, sleepless, suicidal, others Physical Exam General Appearance: Moderate Distress HEENT: Normal ENT Inspection, Pharynx Normal, TMs Normal Neck: Full Range of Motion, Non-Tender, Normal, Normal Inspection Respiratory: Chest Non-Tender, Lungs Clear, No Accessory Muscle Use, No Respiratory Distress, Normal Breath Sounds Cardiovascular: No Edema, No JVD, No Murmur, No Gallop, Normal Peripheral Pulses, Tachycardia Breast Exam: Deferred Gastrointestinal: No Organomegaly, Non Tender, No Pulsatile Mass, Normal Bowel Sounds, Soft Genitalia: Deferred Pelvic: Deferred Rectal: Deferred Extremities: No calf tenderness, Normal capillary refill, Normal inspection, Normal range of motion, Non-tender, No pedal edema Musculoskeletal : Apperance: Normal Neurologic: Alert, onsite health coach II-XII nml as Tested, No Motor Deficits, Normal Affect, Normal Mood, No Sensory Deficits Cerebellar Function: Normal Reflexes: Normal Skin: Dry, Normal Color, Warm Peripheral Pulses: 3+ Radial (R), 3+ Radial (L) Lymphatic: No Adenopathy Was a procedure done? Was a procedure done?: No EKG EKG : Pulse Rate (adult): 116 Cardiac Rhythm: NSR Differential Dx Considerations may include: Gastroenteritis Hyperglycemia X-Ray, Labs, Meds, VS Vital Signs Date Time Temp Pulse Resp B/P (MAP) Pulse Ox O2 Delivery O2 Flow Rate FiO2 01/21/25 16:26 98.7 109 18 112/66 (81) 96 98.7 Patient alert. Complaining of abdominal pain. Vitals stable. Answering questions Reviewed his previous visit. Establish intravenous access. Was given fluids. Was given Flagyl. Was given Zofran. Was given morphine. Continue monitoring. Time of 1ST Reevaluation: 16:36 Reevaluation 1ST: Unchanged Patient Education/Counseling: Diagnosis, Treatment, Prognosis Family Education/Counseling: No Family Present SEPSIS Sepsis Screen Date sepsis recognized/suspect: Jan 21, 2025 Time Sepsis recognized/suspect: 1628 Recent Procedure: No On Antibiotic Therapy: No Respiratory Rate >20: No Heart Rate >90: Yes Temp<36 C (96.8 F) or >38.3 C: No SBP <90 or MAP <65 mmHG: No New Acute Mental Status Change: No Is the patient on CPAP, BIPAP,: No Vital Signs Date Time Temp Pulse Resp B/P (MAP) Pulse Ox O2 Delivery O2 Flow Rate FiO2 01/21/25 16:26 98.7 109 18 112/66 (81) 96 98.7 Departure 1 Departure Time of Disposition: 16:37 Impression: Primary Impression: Uncontrolled diabetes mellitus Qualified Codes: E13.65 - Other specified diabetes mellitus with hyperglycemia Disposition: ADMITTED INPATIENT Admit to: Med Surg Condition: Guarded Critical Care Note Critical Care Time?: Yes (90 min-critical care time only) Critical care comment: Abdominal pain blood sugar elevated continue to monitor Stability Stability form required: No Heart Score Heart Score: Heart Score Response (Comments) Value History Slightly Suspicious 0 EKG Normal 0 Age 45-64 1 Risk Factors >3 or Hx ASHD 2 Troponin Normal limit 0 Total 3 FRANCESCA KEN MD Jan 21, 2025 16:38
[2025-01-21 17:10] LABS: Hematocrit 45.0 % (41.0-53.0); Hemoglobin 16.0 g/dL (13.5-17.5); Mean Corpuscular Hemoglobin 29.5 pg (28.0-32.0); Mean Corpuscular Volume 82.7 fL (80.0-100.0); Nucleated Red Blood Cells % 0.1 %
[2025-01-21 17:14] LABS: Chloride 102 mmol/L (98-107); Sodium 139 mmol/L (136-145)
[2025-01-21 17:15] LABS: Anion Gap 13 (5-15); Carbon Dioxide 24 mmol/L (20-31)
[2025-01-21 17:16] LABS: Calcium 10.0 mg/dL (8.7-10.4)
[2025-01-21] MEDS: SODIUM CHLORIDE 0.9% 1,000 ML IV ONE ×2 (17:16→17:27)
[2025-01-21 17:21] LABS: BUN/Creatinine Ratio 10.6 (10.0-20.0); Blood Urea Nitrogen 15 mg/dL (9-23)
[2025-01-21 17:33] LABS: Glucose 341 mg/dL (74-106); Potassium 3.5 mmol/L (3.5-5.1)
[2025-01-21] MEDS: InsuLIN REG 1unit/0.01ml Soln (100units/ml) IV ONE (17:34)
[2025-01-21 17:38] LABS: Urine Protein, UAD 1+ (Negative)
[2025-01-21] MEDS: PIPERACILLIN-TAZOB 3.375GM 100 ML IV ONE (17:55)
[2025-01-21] MEDS: MORPHINE SULFATE 4 MG/ML SYR/VIAL IV ONE (17:58)
[2025-01-21] MEDS: ONDANSETRON HCL 4 MG/2 ML VIAL IV ONE ×2 (17:58→23:17)
[2025-01-21 18:01] LABS: Lactic Acid w/Reflex 2.9 mmol/L (0.4-2.0)
[2025-01-21] MEDS: SODIUM CHLORIDE 0.9% 1,000 ML IVB ONE (18:05)
[2025-01-21] MEDS ORDERED: DEXTROSE (50%) 50ML SYRG IV PRN (22:45)
[2025-01-21] MEDS ORDERED: MORPHINE SULFATE INJ 2 MG/ml SYRG IV PRN (22:45)
[2025-01-21] MEDS ORDERED: LORazepam 2MG/ML-1ML VIAL IV PRN (22:45)
[2025-01-21] MEDS ORDERED: NITROGLYCERIN 0.4 MG SL TAB SL PRN (22:45)
[2025-01-21] MEDS ORDERED: ONDANSETRON HCL 4 MG/2 ML VIAL IV PRN (22:45)
--- NOTE | 2025-01-21 22:45 | DVHHP2 ---
History of Present Illness History of Present Illness This is a 49 year male with past medical history of diabetes, renal stone came to ED with complain of left sided abdominal pain for last 4 days but worsen since morning which is colicky in nature, intermittent, 8/10, occasionally radiates to back, no aggravating or relieving factor. Patient visited ER in [facility] week earlier due to abdominal pain. Patient also discharged from [facility] on December 14, 2024 due to acute alcoholic intoxication. 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 Patient also complain of generalized weakness, nausea but no vomiting. Currently patient denies any chest pain, shortness of breath, headache, diarrhea, fever. Medical history: DM2, renal stone Past surgical history: Nothing contributory Family and personal history: Lives with . Allergy: No known allergies PCP: UNKNOWN Review of Systems Constitutional: No: Fever, Chills, Sweats, Weakness, Malaise, Other Eyes: No: Pain, Vision change, Conjunctivae inflammation, Eyelid inflammation, Other, Redness ENT: No: Ear pain, Ear discharge, Nose pain, Nose discharge, Nose congestion, Mouth pain, Mouth swelling, Throat pain, Throat swelling, Other Respiratory: No: Cough, Dry, Shortness of breath, SOB with excertion, Wheezing, Hemoptysis, Pleuritic Pain, Sputum, Wheezing, Other Cardiovascular: No: Chest Pain, Palpitations, Orthopnea, Paroxysmal Noc. Dyspnea, Edema, Lt Headedness, Other Gastrointestinal: Nausea, Abdominal Pain Genitourinary: No Dysuria, No Frequency, No Incontinence, No Hematuria, No Retention, No Other Musculoskeletal: No: other, neck pain, shoulder pain, arm pain, back pain, hand pain, leg pain, foot pain Skin: No: Rash, Lesions, Jaundice, Bruising, Other Neurological: No: Weakness, Numbness, Incoordination, Change in speech, Confusion, Seizures, Other Allergies: Coded Allergies: NO KNOWN ALLERGIES (Unverified , 05/22/18) Medications Current Medications Medications Dose Ordered Sig/Elliott Route Start Time Stop Time Status Last Admin Dose Admin Nitroglycerin 0.4 mg Q5MINP PRN SL 01/21/25 22:45 Morphine Sulfate 2 mg Q30M PRN IV 01/21/25 22:45 Pantoprazole Sodium 40 mg DAILY IV 01/22/25 10:00 Sodium Chloride 1,000 ml @ 100 mls/hr Q10H IV 01/21/25 22:45 Insulin Glargine 10 units HS SC 01/22/25 22:00 Diagnostic Test (Pha) 1 strip Q6HR 01/22/25 00:00 Insulin Human Regular Q6HR SC 01/22/25 00:00 Dextrose 50 ml UD PRN IV 01/21/25 22:45 Thiamine HCl 100 mg DAILY PO 01/22/25 10:00 UNV Folic Acid 1 mg DAILY PO 01/22/25 10:00 UNV Lorazepam 1 mg Q5MINP PRN IV 01/21/25 22:45 UNV Ondansetron HCl 4 mg Q4HPRN PRN IV 01/21/25 22:45 UNV Exam Vital Signs Vital Signs Date Time Temp Pulse Resp B/P (MAP) Pulse Ox O2 Delivery O2 Flow Rate FiO2 01/21/25 22:31 98.2 86 16 132/78 (96) 100 98.2 01/21/25 17:14 Room Air General Appearance: Alert, Oriented X3, Cooperative, No acute distress HEENT: PERRLA, EOMI Respiratory: Clear to auscultation, Normal air movement Cardiovascular: Regular rate, Normal S1, Normal S2 Abdominal: Normal bowel sounds, Other (Tender on deep palpation presently on left side of the abdomen) Extremities: No clubbing, No cyanosis, No edema Skin: No rashes, No breakdown Neuro: Normal speech, Strength at 5/5 X4 ext Labs/Xrays Labs Test 01/21/25 19:30 01/21/25 18:41 01/21/25 16:49 01/21/25 16:27 Range/Units Lactic Acid Level 2.2 *H 0.4-2.0 mmol/L POC Glucose 139 H 70-106 mg/dl White Blood Count 7.7 4.4-10.8 10^3/uL Red Blood Count 5.44 4.5-5.90 10^6/uL Hemoglobin 16.0 13.5-17.5 g/dL Hematocrit 45.0 41.0-53.0 % Mean Corpuscular Volume 82.7 80.0-100.0 fL Mean Corpuscular Hemoglobin 29.5 28.0-32.0 pg Mean Corpuscular Hemoglobin Concent 35.7 32.0-36.0 g/dL Red Cell Distribution Width 14.3 11.8-14.3 % Platelet Count 246 140-450 10^3/uL Mean Platelet Volume 7.8 6.9-10.8 fL Neutrophils (%) (Auto) 61.8 37.0-80.0 % Lymphocytes (%) (Auto) 27.6 10.0-50.0 % Monocytes (%) (Auto) 7.5 0.0-12.0 % Eosinophils (%) (Auto) 2.5 0.0-7.0 % Basophils (%) (Auto) 0.6 0.0-2.0 % Neutrophils # (Auto) 4.8 1.6-8.6 10 ^3/uL Lymphocytes # (Auto) 2.1 0.4-5.4 10 ^3/uL Monocytes # (Auto) 0.6 0-1.3 10 ^3/uL Eosinophils # (Auto) 0.2 0-0.8 10 ^3/uL Basophils # (Auto) 0 0-0.2 10 ^3/uL Nucleated Red Blood Cells 0.1 % Sodium Level 139 # 136-145 mmol/L Potassium Level 3.5 3.5-5.1 mmol/L Chloride Level 102 98-107 mmol/L Carbon Dioxide Level 24 20-31 mmol/L Anion Gap 13 5-15 Blood Urea Nitrogen 15 9-23 mg/dL Creatinine 1.42 H 0.700-1.30 mg/dL Glomerular Filtration Rate Calc 60 >90 mL/min BUN/Creatinine Ratio 10.6 10.0-20.0 Serum Glucose 341 #H 74-106 mg/dL Calcium Level 10.0 8.7-10.4 mg/dL Beta-Hydroxybutyric Acid 0.224 < 0.4 mmol/L Urine Color Yellow Yellow Urine Clarity Turbid H Clear Urine pH 5.5 5.0-9.0 Urine Specific [place] 1.024 1.001-1.035 Urine Protein 1+ H Negative Urine Ketones Trace Negative Urine Blood 3+ H Negative /uL Urine Nitrite Negative Negative Urine Bilirubin Negative Negative Urine Urobilinogen Normal Negative mg/dL Urine Leukocyte Esterase Negative Negative /uL Urine RBC 108 0 - 3 /hpf Urine Microscopic WBC 4 H 0-3 /HPF Urine Squamous Epithelial Cells Few <5 /hpf Urine Bacteria Few H None Seen /hpf Urine Hyaline Casts Many 0 - 2 /lpf Urine Mucus Few None Seen Urine Glucose 3+ H Normal mg/dL Assessment/Plan Assessment/Plan # Intractable abdominal pain rule out acute pancreatitis, gastritis, pyelonephritis, DKA, -Patient came with intractable abdominal pain -patient history of alcohol use disorders -CT Abdomen (01/18/2025) :CT abd with contrast- 01/19/2025- No acute abdominal or pelvic finding. Trace right pleural effusion. Small hiatal hernia. -Patient received NS bolus, Zosyn, metronidazole, insulin, morphine in ED -no leukocytosis left shift -Amylase level 43 -Anion gap 13 -hydroxybutyric acid 0.224 -KEEP PATIENT NPO -continue normal saline 100 cc/hours - Ondansetron 4 mg IV p.r.n. - Pantoprazole 40 mg daily -Liver function-AST ALT bilirubin levels # Acute alcohol intoxication/ substance use disorder -H/O Alcohol intoxication with seizure -CIWA score 3 -Thiamine 100 mg daily -Folic acid1 mg daily -Lorazepam 1 mg iv prn for seizure -blood alcohol level -123.4 -Follow magnesium, phosphorus level -Uds # SARAH due to vasomotor nephropathy -serum creatinine in 1.42 -Baseline 0.8 -Continue IV fluid NSS 100 cc/hours -Monitor BMP # Acute pyelonephritis/UTI -UA: Has been appearance blood 3+, RBC 108, WBC 4, bacteria few, hyaline casts many -ordered urine culture -continue ceftriaxone1 g daily -Continue IV fluid # Diabetes mellitus type 2 with hyperglycemia -Diagnosed DM2, recently switched oral metformin to insulin -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 Goals of care discussion, > 29 minutes is spent with patient . full code status Case discussed with Dr. Rojas Plan discussed with: Patient, Other (Nurse) My Orders Orders - BERNARDO RANGEL Procedure Category Date Status Time Admit ADMIT 01/21/25 Transmitted 22:32 Nitroglycerin PHA 01/21/25 In Process Sublingual (Ntrostat 22:45 Morphine Sulfate PHA 01/21/25 In Process Injection 22:45 Date of Service: Jan 21, 2025 Billing Provider: FRANDY ROJAS MD Common Visit Codes: 54095-[id number] INP/OBS CARE (HIGH) Secondary Visit Codes: 70550-[id number] CARE PLAN 30 MINUTES BERNARDO RANGEL RESIDENT Jan 21, 2025 22:45
[2025-01-21] MEDS: FOLIC ACID 1 MG TAB PO ONE (23:14)
[2025-01-21] MEDS: THIAMINE HCL 100 MG TAB PO ONE (23:14)
[2025-01-21] MEDS: PANTOPRAZOLE 40 MG/10 ML VIAL INJ IV ONE (23:16)
[2025-01-22 00:02] LABS: Bilirubin, Direct 0.3 mg/dL (<0.3)
[2025-01-22 00:05] LABS: Alanine Aminotransferase 42.0 U/L (7-40)
[2025-01-22 00:05] LABS: Amphetamine Screen, Urine Pos (NEGATIVE); Barbiturate Scree,Urine Neg (NEGATIVE); Benzodiazephine Screen, Urine Pos (NEGATIVE); Cannabinoid Screen, Urine Neg (NEGATIVE); Cocaine Screen, Urine Neg (NEGATIVE); Opiate Scree,Urine Neg (NEGATIVE); Phencyclidine Screen, Urine Neg (NEGATIVE)
[2025-01-22] MEDS: SODIUM CHLORIDE 0.9% 1,000 ML IV SCH (00:07)
[2025-01-22] MEDS: ACCU-CHEK COMFORT CURVE STRIP VI SCH (00:35)
[2025-01-22] MEDS: InsuLIN REG 1unit/0.01ml Soln (100units/ml) SC SCH (00:38)
[2025-01-22] MEDS ORDERED: INSLANTI SC (00:56)
[2025-01-22 01:00] VITALS: BP 122/76; PULSE 100; RESP 20; TEMP 97.5; O2SAT 98
--- NOTE | 2025-01-22 04:58 | DVH ---
EXAM: XY CHEST XRAY 1 VIEW HISTORY: sob COMPARISON: None TECHNIQUE: Portable AP view of the chest was performed. FINDINGS: No pneumothorax, consolidative infiltrates, or pulmonary edema. There is peribronchial thickening. Th e heart is not enlarged. There is mild lower thoracic dextroscoliosis. IMPRESSION: Reactive airways disease. The lungs are otherwise clear.
--- NOTE | 2025-01-22 04:59 | DVH ---
Exam: XY KUB ABDOMEN SINGLE VIEW Indication: abdominal xray Comparison: None Technique: Supine AP view of the abdomen was performed. Findings: No abnormal bowel dilatation. Gas is present throughout the colon. There is fecal retention in the co felecia. No abnormal calcifications overlying the urinary tract. There is [id number] Lumbar degener ative disc disease. Impression: 1. No evidence of bowel obstruction. 2. Fecal retention in the colon suggestive of constipation.
[2025-01-22 05:00] VITALS: BP 104/68; PULSE 87; RESP 19; TEMP 98.2; O2SAT 95
[2025-01-22] MEDS: MORPHINE SULFATE INJ 2 MG/ml SYRG IV ONE (05:53)
[2025-01-22 07:57] VITALS: BP 109/77; PULSE 86; RESP 20; TEMP 98; O2SAT 97
[2025-01-22] MEDS ORDERED: cefTRIAXone 1GM/50ML D5W 50 ML IV SCH (09:00)
[2025-01-22] MEDS: POLYETHYLENE GLYCOL 17 GM PWDR PO ONE (09:50)
[2025-01-22] MEDS: THIAMINE HCL 100 MG TAB PO SCH (09:50)
[2025-01-22] MEDS: FOLIC ACID 1 MG TAB PO SCH (09:51)
[2025-01-22] MEDS: PANTOPRAZOLE 40 MG/10 ML VIAL INJ IV SCH (09:51)
[2025-01-22 09:55] LABS: Anion Gap 8 (5-15); Carbon Dioxide 29 mmol/L (20-31)
[2025-01-22 09:56] LABS: Calcium 9.2 mg/dL (8.7-10.4)
[2025-01-22 10:01] LABS: BUN/Creatinine Ratio 11.8 (10.0-20.0); Blood Urea Nitrogen 12 mg/dL (9-23)
[2025-01-22 10:03] LABS: Magnesium 1.9 mg/dL (1.6-2.6)
[2025-01-22 10:08] LABS: Chloride 108 mmol/L (98-107); Glucose 113 mg/dL (74-106); Potassium 3.2 mmol/L (3.5-5.1); Sodium 145 mmol/L (136-145)
[2025-01-22] MEDS ORDERED: POLYETHYLENE GLYCOL 17 GM PWDR PO PRN (10:30)
--- NOTE | 2025-01-22 11:40 | DVHPNRES ---
Progress Note Date Seen: Jan 22, 2025 Resident Creating Document: MARIA M GRIDER RESIDENT Medical Necessity Reason Pt with a Central, PICC or Fol: No Subjective Review of Systems This is a 49 yr old male with past medical history of type 2 diabetes mellitus, renal stone, alcohol and drug abuse disorder presented to the ED with a chief complaint of left-sided abdominal pain for last 2 days prior to this admission. patient states that abdominal pain started 2 days ago which was colicky in nature, intermittent, 8 x 10 radiates to the back, no aggravating or relieving factor and associated with nausea and vomiting getting worse that prompted this visit. was visited ER of [facility] 1 weeks ago due to the abdominal pain and according to the patient who they mentioned he has kidney stone. the patient was recently discharged from [facility] on December 14 due to acute alcohol intoxication. He also mentioned he use drug mostly methamphetamine but he stopped few months ago again started 2 weeks ago and drink alcohol 1 bottle of wine per day. patient denied fever, chills, chest pain, shortness of breath, hematuria, hematemesis, blood in the stool or any changes in bowel and bladder habit. Patient was seen and examined on the bedside. He is alert oriented x3. complaint of left hypochondriac pain. no other active complaint. Constitutional: No: Fever, Chills, Sweats, Weakness, Malaise, Other Eyes: No: Pain, Vision change, Conjunctivae inflammation, Eyelid inflammation, Other, Redness ENT: No: Ear pain, Ear discharge, Nose pain, Nose discharge, Nose congestion, Mouth pain, Mouth swelling, Throat pain, Throat swelling, Other Respiratory: Shortness of breath, improving No: Cough, Dry,Wheezing, Hemoptysis, Pleuritic Pain, Sputum, Wheezing, Other Cardiovascular: No: Chest Pain, Palpitations, Orthopnea, Paroxysmal Noc. Dyspnea, Edema, Lt Headedness, Other Gastrointestinal: Nausea, Vomiting, Abdominal Pain, No Diarrhea, Constipation, Melena, Hematochezia, Other Musculoskeletal: No: other, neck pain, shoulder pain, arm pain, back pain, hand pain, leg pain, foot pain Neurological:; No: Weakness, Numbness, Incoordination, Change in speech, Confusion, Seizures Objective vital signs Vital Sign Date Time Temp Pulse Resp B/P (MAP) Pulse Ox O2 Delivery O2 Flow Rate FiO2 7/5/25 08:00 Room Air* 0 21 01/22/25 07:57 98.0 86 20 109/77 (88) 97 98.0 Total Intake and Output 01/21/25 01/21/25 01/22/25 15:00 23:00 07:00 Intake Total 2200 ml 0 ml Balance 2200 ml 0 ml medications Current Medications Medications Dose Ordered Sig/Elliott Route Start Time Stop Time Status Last Admin Dose Admin Pantoprazole Sodium 40 mg DAILY IV 01/22/25 10:00 01/22/25 09:51 40 MG Sodium Chloride 1,000 ml @ 100 mls/hr Q10H IV 01/21/25 22:45 01/22/25 08:45 100 MLS/HR Insulin Glargine 10 units HS SC 01/22/25 22:00 Diagnostic Test (Pha) 1 strip Q6HR 01/22/25 00:00 01/22/25 05:53 1 STRIP Insulin Human Regular Q6HR SC 01/22/25 00:00 01/22/25 05:59 6 UNITS Dextrose 50 ml UD PRN IV 01/21/25 22:45 Thiamine HCl 100 mg DAILY PO 01/22/25 10:00 01/22/25 09:50 100 MG Folic Acid 1 mg DAILY PO 01/22/25 10:00 01/22/25 09:51 1 MG Lorazepam 1 mg Q5MINP PRN IV 01/21/25 22:45 Ondansetron HCl 4 mg Q4HPRN PRN IV 01/21/25 22:45 Polyethylene Glycol 17 gm DAILYPRN PRN PO 01/22/25 10:30 Acetaminophen 650 mg Q6HP PRN PO 01/22/25 11:30 UNV Examination Physical examination: General Appearance: Alert, Oriented X3, Cooperative, No acute distress HEENT: Atraumatic, PERRLA, EOMI, Mucous membrane moist/pink Respiratory: Clear to auscultation, Normal air movement Cardiovascular: Regular rate, Normal S1, Normal S2, No murmurs, no chest wall tenderness Abdominal: Normal bowel sounds, Soft, mild tenderness in the lt hypochondriac region, No hepatospenomegaly, No masses Extremities: No clubbing, No cyanosis, No edema, Normal pulses, No tenderness/swelling Skin: No rashes, No breakdown, No significant lesion Neuro: Normal gait, Normal speech, Strength at 5/5 X4 ext, Normal tone, Sensation intact, Cranial nerves 3-12 NL, Reflexes 2+ Psych/Mental Status: Mental status NL, Mood NL laboratory and microbiology Laboratory Tests 01/22/25 08:34 01/21/25 16:49 Test 01/22/25 08:34 Range/Units Serum Glucose 113 #H 74-106 mg/dL Labs and/or images reviewed: Labs reviewed by me, Image(s) reviewed by me Problem List/Assessment/Plan Problem List/Assessment/Plan Assessment and plan: # Intractable abdominal pain likely secondary to nephrolithiasis # Ruled out pancreatitis # Slow transit constipation # Possible gastritis - Full liquid diet - Xray KUB abdomen demonstrated no evidence of bowel obstruction and fecal retention in the colon suggestive of constipation. - U/A demonstrated 3+ blood - Ordered CT abdomen pelvis without contrast - Acetaminophen 650 mg p.r.n. for pain. - Miralax powder 17 g daily - IV Protonix 40 mg daily - IV ondansetron 4 mg q.4 PRN # SARAH likely secondary to hemodynamically mediated /VMN # Lactic acidosis likely due to dehydration - IV normal saline at 100 mL/hours - Monitor BMP # Hypokalemia - Replenished # Type 2 diabetes mellitus, hemoglobin A1c 8.7 - Lantus 10 units at HS and mild sliding scale of insulin # Alcohol and methamphetamine abuse disorder - Serum alcohol is 123.4 and UDS is positive for amphetamine and benzodiazepine - Magnesium, potassium and phosphorus level are normal - IV Ativan 1 mg Q 5 minutes p.r.n. for seizure - Continue thiamine 100 mg p.o. daily, folic acid 1 mg daily - Counseled patient regarding alcohol and methamphetamine abuse and rehabilitation # DVT prophylaxis - Not recommended as patient is ambulating Goal of care discussed with the patient for more than 21 minutes full code Plan discussed with Dr. Dong Plan discussed with: Patient, Other My Orders My Orders Orders - MARIA M GRIDER RESIDENT Procedure Category Date Status Time Full Liq Diet DIET 01/22/25 Transmitted Lunch Polyethylene Glycol PHA 01/22/25 In Process 17g Powder (Miralax 10:30 Acetaminophen Tablet PHA 01/22/25 Logged (Tylenol Tablet) 11:30 Ct Ab Pel Wo Con-No CT 01/22/25 Logged Oral Or Iv 11:22 Date of Service: Jan 22, 2025 Billing Provider: KRISTEN DONG MD Common Visit Codes: [id number] INP/OBS CARE(HIGH) MARIA M GRIDER RESIDENT Jan 22, 2025 11:40 KRISTEN DONG MD Jan 22, 2025 16:58
[2025-01-22] MEDS: POTASSIUM EFFERVESENT TAB 25 MEQ PO ONE (12:20)
[2025-01-22] MEDS: ACETAMINOPHEN 325 MG TAB PO PRN (12:21)
[2025-01-22 13:00] VITALS: BP 120/79; PULSE 71; RESP 20; TEMP 98.4; O2SAT 96
--- NOTE | 2025-01-22 15:47 | DVH ---
Exam: CT CT AB PEL WO CON-NO ORAL OR IV History: Left hypochondriac pain Comparison Study: CT CT AB PEL WO CON-NO ORAL OR IV on DOS: 12/11/24, CT CT AB PEL WO CON-NO ORAL OR I V on DOS: 11/13/24 Technique: Multidetector spiral CT of the abdomen and pelvis was performed from lung bases to pubic symphysis. Imaging was performed without IV contrast. Axial, coronal and sagittal multiplanar reform ats were obtained from the axial data set by the technologist. Radiation dose : Abdomen/Pelvis: CTDIvol 6.7 mGy, DLP 320.89 mGy*cm. Findings: Evaluation of solid organs is limited due to lack of intravenous contrast use. Lung Bases: No acute or significant lung base finding. Normal heart size. No pleural or pericardial effusion. Liver: The liver is normal in size. No focal lesions. Gallbladder and biliary Tree: Gallbladder is mildly distended. No radiopaque calculi identified. Spleen: Unremarkable Pancreas: The pancreas is grossly normal in appearance. Adrenal Glands: Unremarkable Kidneys: Punctate left renal calculus. Left renal cysts. No hydronephrosis. Bladder: Grossly unremarkable for degree of distention. Bowel: The stomach is grossly normal in appearance. Small bowel and colon are normal in caliber and d istribution. Normal appendix is visualized in the right lower quadrant without findings of appendicit is. Ascites: Absent Lymphadenopathy: Subcentimeter mesenteric lymph nodes noted. Abdominal wall and Mesentery: Unremarkable. Vasculature: The visualized abdominal aorta is normal in size and caliber. Evaluation of abdominal a nd pelvic vessels is limited due to lack of intravenous contrast. Pelvic Organs: Unremarkable Musculoskeletal: No aggressive focal bony lesions, acute fractures or dislocation. IMPRESSION: 1. No acute abdominal or pelvic findings. Gallbladder is mildly distended. Consider further evaluati on with right upper quadrant ultrasound. Punctate nonobstructive left renal calculus. Left renal cyst . Nonspecific subcentimeter mesenteric lymph nodes. Radiation optimization: All CT scans at this facility use at least one of these dose optimization genesis hniques: Automated exposure control mA and/or kV adjustment per patient size (includes targeted exams where dose is matched to clinical indication) or iterative reconstruction. HS:Y
[2025-01-22 17:00] VITALS: BP 125/90; PULSE 98; RESP 20; TEMP 98.8; O2SAT 96
[2025-01-22 21:00] VITALS: BP 120/82; PULSE 96; RESP 20; TEMP 98.5; O2SAT 97
[2025-01-22] MEDS: INSULIN LANTUS (GLARGINE) 1 /0.01ml (100units/ml) SC SCH (22:10)
[2025-01-22] MEDS: HYDROcodone-ACET 5/325MG TAB PO PRN (22:21)
[2025-01-23 01:00] VITALS: BP 122/82; PULSE 80; RESP 19; TEMP 98.3; O2SAT 97
[2025-01-23] MEDS: LORazepam 2MG/ML-1ML VIAL IV PRN (01:17)
[2025-01-23 05:00] VITALS: BP 122/89; PULSE 80; RESP 19; TEMP 97.7; O2SAT 97
[2025-01-23 07:05] LABS: Hematocrit 38.9 % (41.0-53.0); Hemoglobin 14.0 g/dL (13.5-17.5); Mean Corpuscular Hemoglobin 30.2 pg (28.0-32.0); Mean Corpuscular Volume 83.5 fL (80.0-100.0); Nucleated Red Blood Cells % 0.1 %
[2025-01-23 07:22] LABS: Chloride 105 mmol/L (98-107); Potassium 3.7 mmol/L (3.5-5.1); Sodium 144 mmol/L (136-145)
[2025-01-23 07:23] LABS: Anion Gap 9 (5-15); Calcium 9.4 mg/dL (8.7-10.4); Carbon Dioxide 30 mmol/L (20-31)
[2025-01-23 07:28] LABS: BUN/Creatinine Ratio 5.8 (10.0-20.0)
[2025-01-23 07:38] LABS: Blood Urea Nitrogen 6 mg/dL (9-23); Glucose 227 mg/dL (74-106)
[2025-01-23 09:40] VITALS: BP 133/83; PULSE 79; RESP 16; TEMP 97.9; O2SAT 96
--- NOTE | 2025-01-23 09:44 | DVHSR ---
APPROVED REPORT EXAM: Two-dimensional and M-mode echocardiogram with Doppler and color Doppler. Blood Pressure: 109/77 mmHg INDICATION Meth use RISK FACTORS Height: 6'0", Weight: 186 DIMENSIONS LVDd4.3 (3.8-5.7cm)LA (2D)4.4 (1.9-4.0cm)Aortic Root4.2 (2.0-3.7cm) LVDs2.9 (2.5-4.0cm)LA (MM) (1.9-4.0cm)Aortic Cusp Exc2.0 (1.5-2.0cm) EF (%) 60.0 (55-70%)Rt. Atrium4.3 (1.9-4.0cm)Asc. Aorta cm IVSd1.1 (0.7-1.1cm)RV (D)4.8 (1.8-2.4cm) PWd1.0 (0.7-1.1cm) Mitral Valve MitralMitral Stenosis E wave0.74m/sMV Mean GR.mmHg A wave0.70m/sMV Peak GR.mmHg E/A ratio1.12D MVAcm2 DECEL [id number] 1/2 Timems Aortic Valve Aortic ValveAortic Stenosis V11.07m/Aramis Mean GR.4mmHg V21.42m/Aramis Peak GR.8mmHg LVOT Diameter2.0 (1.8-2.4cm)Doppler AVA2.37cm2 Pulmonic Valve V20.77m/s Tricuspid Valve TR Velocity2.41m/s [id number] Conclusion lvef 65% mild LVH normal rv function no severe valve abnormalities noted
--- NOTE | 2025-01-23 09:56 | DVHPNRES ---
Progress Note Date Seen: Jan 23, 2025 Resident Creating Document: VÍCTOR KIM RESIDENT Medical Necessity Reason Pt with a Central, PICC or Fol: No Subjective Review of Systems This is a 49 yr old male with past medical history of type 2 diabetes mellitus, renal stone, alcohol and drug abuse disorder presented to the ED with a chief complaint of left-sided abdominal pain for last 2 days prior to this admission. patient states that abdominal pain started 2 days ago which was colicky in nature, intermittent, 8 x 10 radiates to the back, no aggravating or relieving factor and associated with nausea and vomiting getting worse that prompted this visit. was visited ER of [facility] 1 weeks ago due to the abdominal pain and according to the patient who they mentioned he has kidney stone. the patient was recently discharged from [facility] on December 14 due to acute alcohol intoxication. He also mentioned he use drug mostly methamphetamine but he stopped few months ago again started 2 weeks ago and drink alcohol 1 bottle of wine per day. patient denied fever, chills, chest pain, shortness of breath, hematuria, hematemesis, blood in the stool or any changes in bowel and bladder habit. Patient seen at bedside. He appears alert*3, he complains for left lower abdominal pain, and mild tremors, night sweats and anxiety due to alcohol withdrawal. Patient denies any dizziness, nausea or vomiting's. Objective vital signs Vital Sign Date Time Temp Pulse Resp B/P (MAP) Pulse Ox O2 Delivery O2 Flow Rate FiO2 01/23/25 09:40 97.9 79 16 133/83 (100) 96 97.9 01/22/25 19:55 Room Air* 0 21 Total Intake and Output 01/22/25 01/22/25 01/23/25 15:00 23:00 07:00 Intake Total 760 ml 420 ml Balance 760 ml 420 ml medications Current Medications Medications Dose Ordered Sig/Elliott Route Start Time Stop Time Status Last Admin Dose Admin Pantoprazole Sodium 40 mg DAILY IV 01/22/25 10:00 01/22/25 09:51 40 MG Sodium Chloride 1,000 ml @ 100 mls/hr Q10H IV 01/21/25 22:45 01/23/25 04:27 100 MLS/HR Insulin Glargine 10 units HS SC 01/22/25 22:00 01/22/25 22:10 10 UNITS Diagnostic Test (Pha) 1 strip Q6HR 01/22/25 00:00 01/23/25 06:18 1 STRIP Insulin Human Regular Q6HR SC 01/22/25 00:00 01/23/25 06:18 6 UNITS Dextrose 50 ml UD PRN IV 01/21/25 22:45 Thiamine HCl 100 mg DAILY PO 01/22/25 10:00 01/22/25 09:50 100 MG Folic Acid 1 mg DAILY PO 01/22/25 10:00 01/22/25 09:51 1 MG Lorazepam 1 mg Q5MINP PRN IV 01/21/25 22:45 Ondansetron HCl 4 mg Q4HPRN PRN IV 01/21/25 22:45 Polyethylene Glycol 17 gm DAILYPRN PRN PO 01/22/25 10:30 Acetaminophen 650 mg Q6HP PRN PO 01/22/25 11:30 01/22/25 19:46 650 MG Acetaminophen/ Hydrocodone Bitart 1 tab Q6HPRN PRN PO 01/22/25 22:00 01/22/25 22:21 1 TAB Lorazepam 1 mg Q8HP PRN IV 01/23/25 00:45 01/23/25 01:17 1 MG laboratory and microbiology Laboratory Tests 01/23/25 06:14 Test 01/23/25 06:14 Range/Units Serum Glucose 227 #H 74-106 mg/dL Microbiology Date/Time Source Procedure Growth Status 01/21/25 17:30 Blood Blood Culture - Preliminary NO GROWTH AFTER 24 HOURS OF INCUBATION. Resulted Problem List/Assessment/Plan Problem List/Assessment/Plan # Intractable abdominal pain likely secondary to nephrolithiasis # Ruled out pancreatitis # Slow transit constipation # Possible gastritis - Full liquid diet - Xray KUB abdomen demonstrated no evidence of bowel obstruction and fecal retention in the colon suggestive of constipation. - U/A demonstrated 3+ blood - Ordered CT abdomen pelvis without contrast - Acetaminophen 650 mg p.r.n. for pain. - Miralax powder 17 g daily - IV Protonix 40 mg daily - IV ondansetron 4 mg q.4 PRN # SARAH likely secondary to hemodynamically mediated /VMN # Lactic acidosis likely due to dehydration - IV normal saline at 100 mL/hours - Monitor BMP # Hypokalemia - Replenished # Type 2 diabetes mellitus, hemoglobin A1c 8.7 - Lantus 10 units at HS and mild sliding scale of insulin # Alcohol and methamphetamine abuse disorder - Serum alcohol is 123.4 and UDS is positive for amphetamine and benzodiazepine - Magnesium, potassium and phosphorus level are normal - IV Ativan 1 mg Q 5 minutes p.r.n. for seizure - Continue thiamine 100 mg p.o. daily, folic acid 1 mg daily - Counseled patient regarding alcohol and methamphetamine abuse and rehabilitation # DVT prophylaxis - Not recommended as patient is ambulating Goal of care discussed with the patient for more than 19 minutes full code Plan discussed with Dr. Calix Plan discussed with: Patient VÍCTOR KIM RESIDENT Jan 23, 2025 09:56
[2025-01-23] MEDS ORDERED: CEPH500C PO (13:35)
[2025-01-23 13:43] VITALS: BP 137/97; PULSE 89; RESP 16; TEMP 98; O2SAT 99
[2025-01-23] MEDS ORDERED: CHL25C PO (13:55)
[2025-01-23 14:25] VITALS: BP 137/97; PULSE 89; RESP 16; TEMP 98; O2SAT 99
--- NOTE | 2025-01-23 16:45 | DVHDSRES ---
Discharge Summary Date of Admission Resident Creating Document: VÍCTOR KIM Jan 21, 2025 at 22:32 Date of Discharge: Jan 23, 2025 Admitting Diagnosis # Intractable abdominal pain likely secondary to nephrolithiasis Labs/Diagnostic Data: Laboratory Results Test 01/23/25 11:06 01/23/25 06:14 01/22/25 08:34 01/21/25 16:49 POC Glucose 139 mg/dl (70-106) White Blood Count 5.5 10^3/uL (4.4-10.8) Red Blood Count 4.66 10^6/uL (4.5-5.90) Hemoglobin 14.0 g/dL (13.5-17.5) Hematocrit 38.9 % (41.0-53.0) Mean Corpuscular Volume 83.5 fL (80.0-100.0) Mean Corpuscular Hemoglobin 30.2 pg (28.0-32.0) Mean Corpuscular Hemoglobin Concent 36.1 g/dL (32.0-36.0) Red Cell Distribution Width 13.8 % (11.8-14.3) Platelet Count 165 10^3/uL (140-450) Mean Platelet Volume 7.9 fL (6.9-10.8) Neutrophils (%) (Auto) 54.1 % (37.0-80.0) Lymphocytes (%) (Auto) 32.8 % (10.0-50.0) Monocytes (%) (Auto) 9.5 % (0.0-12.0) Eosinophils (%) (Auto) 3.0 % (0.0-7.0) Basophils (%) (Auto) 0.6 % (0.0-2.0) Neutrophils # (Auto) 3.0 10 ^3/uL (1.6-8.6) Lymphocytes # (Auto) 1.8 10 ^3/uL (0.4-5.4) Monocytes # (Auto) 0.5 10 ^3/uL (0-1.3) Eosinophils # (Auto) 0.2 10 ^3/uL (0-0.8) Basophils # (Auto) 0 10 ^3/uL (0-0.2) Nucleated Red Blood Cells 0.1 % Sodium Level 144 mmol/L (136-145) Potassium Level 3.7 mmol/L (3.5-5.1) Chloride Level 105 mmol/L (98-107) Carbon Dioxide Level 30 mmol/L (20-31) Anion Gap 9 (5-15) Blood Urea Nitrogen 6 mg/dL (9-23) Creatinine 1.04 mg/dL (0.700-1.30) Glomerular Filtration Rate Calc 87 mL/min (>90) BUN/Creatinine Ratio 5.8 (10.0-20.0) Serum Glucose 227 mg/dL (74-106) Calcium Level 9.4 mg/dL (8.7-10.4) Hemoglobin A1c 8.7 % A1C (<5.7) Lactic Acid Level 1.1 mmol/L (0.4-2.0) Phosphorus Level 3.7 mg/dL (2.4-5.1) Magnesium Level 1.9 mg/dL (1.6-2.6) Direct Bilirubin 0.3 mg/dL (<0.3) Aspartate Amino Transferase (AST) 29 U/L (13-40) Alanine Aminotransferase (ALT) 42 U/L (7-40) B-Type Natriuretic Peptide 7.63 pg/mL (0-100) Lipase 49 U/L (12-53) Beta-Hydroxybutyric Acid 0.224 mmol/L (< 0.4) Thyroid Stimulating Hormone (TSH) 2.16 uIU/mL (0.55-4.78) Plasma/Serum Blood Alcohol 123.4 mg/dL (<10) Test 01/21/25 16:27 Urine Color Yellow (Yellow) Urine Clarity Turbid (Clear) Urine pH 5.5 (5.0-9.0) Urine Specific [place] 1.024 (1.001-1.035) Urine Protein 1+ (Negative) Urine Ketones Trace (Negative) Urine Blood 3+ /uL (Negative) Urine Nitrite Negative (Negative) Urine Bilirubin Negative (Negative) Urine Urobilinogen Normal mg/dL (Negative) Urine Leukocyte Esterase Negative /uL (Negative) Urine RBC 108 /hpf (0 - 3) Urine Microscopic WBC 4 /HPF (0-3) Urine Squamous Epithelial Cells Few /hpf (<5) Urine Bacteria Few /hpf (None Seen) Urine Hyaline Casts Many /lpf (0 - 2) Urine Mucus Few (None Seen) Urine Glucose 3+ mg/dL (Normal) Urine Opiates Screen Neg (NEGATIVE) Urine Fentanyl Screen Neg (NEGATIVE) Urine Barbiturates Screen Neg (NEGATIVE) Urine Phencyclidine Screen Neg (NEGATIVE) Urine Amphetamines Screen Pos (NEGATIVE) Urine Benzodiazepines Screen Pos (NEGATIVE) Urine Cocaine Screen Neg (NEGATIVE) Urine Cannabinoids Screen Neg (NEGATIVE) Other Laboratory Tests 01/23/25 06:14 Brief Hx & Hospital Course: This is a 49 yr old male with past medical history of type 2 diabetes mellitus, renal stone, alcohol and drug abuse disorder presented to the ED with a chief complaint of left-sided abdominal pain for last 2 days prior to this admission. patient states that abdominal pain started 2 days ago which was colicky in nature, intermittent, 8 x 10 radiates to the back, no aggravating or relieving factor and associated with nausea and vomiting getting worse that prompted this visit. was visited ER of [facility] 1 weeks ago due to the abdominal pain and according to the patient who they mentioned he has kidney stone. the patient was recently discharged from [facility] on December 14 due to acute alcohol intoxication. He also mentioned he use drug mostly methamphetamine but he stopped few months ago again started 2 weeks ago and drink alcohol 1 bottle of wine per day. patient denied fever, chills, chest pain, shortness of breath, hematuria, hematemesis, blood in the stool or any changes in bowel and bladder habit. Brief hospital history: Patient came with intractable abdominal pain likely secondary to nephrolithiasis, pancreatitis was ruled out and patient had possible gastritis. A full liquid diet was given. X-ray KUB abdomen demonstrated no evidence of bowel obstruction and fecal retention in the colon suggestive of constipation. Urinalysis demonstrated 3+ blood. A CT abdomen pelvis without contrast was ordered and showed no acute abdominal or pelvic findings. Gallbladder was mildly distended. Punctate nonobstructive left renal calculus, left renal cyst was found. Nonspecific subcentimeter mesenteric lymph nodes noted. We gave the patient acetaminophen 650 mg p.r.n. in thought for pain. MiraLax powder was given. IV Protonix and ondansetron ordered. For SARAH likely secondary to VMN and lactic acidosis likely due to dehydration, patient was given IV normal saline and BMP was monitored. Potassium was replenished 4 hypokalemia. Patient's HB1AC was 8.7, for uncontrolled type 2 diabetes mellitus insulin was given in his sliding scale. Patient had alcohol and methamphetamine abuse disorder where serum alcohol was 123.4 urine drug screen showed positive for amphetamine and benzodiazepine. IV Ativan p.r.n. was ordered for seizure prophylaxis. Thiamine and folic acid was given. Patient was counseled regarding alcohol and methamphetamine abuse and rehabilitation. Patient is now stable for discharge. He was counseled regarding following a diabetic diet, cessation of alcohol and amphetamine and benzodiazepine use as well as the effects of overuse. Patient has been counseled to take cephalexin, Librium, and his insulin medication continuously. He has also been encouraged to drink lots of fluids and hydrate himself, and to avoid red meat for which he communicated understanding. Physical examination: General Appearance: Alert, Oriented X3, Cooperative, No acute distress HEENT: Atraumatic, PERRLA, EOMI, Mucous membrane moist/pink Respiratory: Clear to auscultation, Normal air movement Cardiovascular: Regular rate, Normal S1, Normal S2, No murmurs, no chest wall tenderness Abdominal: Normal bowel sounds, Soft, mild tenderness in the lt hypochondriac region, No hepatospenomegaly, No masses Extremities: No clubbing, No cyanosis, No edema, Normal pulses, No tenderness/swelling Skin: No rashes, No breakdown, No significant lesion Neuro: Normal gait, Normal speech, Strength at 5/5 X4 ext, Normal tone, Sensation intact, Cranial nerves 3-12 NL, Reflexes 2+ Psych/Mental Status: Mental status NL, Mood NL Condition at Discharge: Stable Final Diagnosis/Problems List # Intractable abdominal pain likely secondary to nephrolithiasis # Ruled out pancreatitis # Slow transit constipation # Possible gastritis # SARAH likely secondary to hemodynamically mediated /VMN # Alcohol and methamphetamine abuse disorder #Type 2 diabetes mellitus, hemoglobin A1c 8.7 #Hypokalemia # Lactic acidosis likely due to dehydration Discharge Disposition: Home Discharge Instruct/Medications Diet: Consistent carbohydrate Activity: No Restrictions, As Tolerated Follow Up/Referral: Follow up with discarge clinic in 1-2 weeks Medications: As per EMR Scheduled Cephalexin Monohydrate (Cephalexin), 1 CAP PO TID Chlordiazepoxide Hcl (Librium), 25 MG PO UD Miscellaneous Medications Insulin Glargine (Lantus), 100 UNIT SC, (Reported) Discharge Statement: "Patient was advised to return to the ER or call 911 if any headaches, dizziness, shortness of breath, chest pain, abdominal pain, bleeding, fevers, or worsening of medical condition. Patient was counseled about treatment plan, medications, possible side effects, patientverbalized understanding. All questions were answered to the best of my ability. This discharge took greater then 30 minutes in planning, reviewing documentation, counseling the patient, and discussing with other team members." ASSESSMENT ASSESSMENT Assessment Intractable abdominal pain likely secondary to nephrolithiasis Date of Service: Jan 23, 2025 Billing Provider: KRISTEN DONG MD Common Visit Codes: 75065-ZAL/OBS DISCH DAY >30min Date of Service: Jan 23, 2025 Billing Provider: KRISTEN DONG MD Common Visit Codes: 15614-LFE/OBS DISCH DAY >30min VÍCTOR KIM RESIDENT Jan 23, 2025 16:45 KRISTEN DONG MD Jan 23, 2025 21:19
[2025-01-24 10:13] LABS: Hepatitis B Surface Antigen Negative (Negative)
[2025-01-24 10:35] LABS: Hepatitis C Antibody Negative (Negative)
== END 2025-01-23 14:45 | disposition home or self-care (01) | DRG 465 ==
LOC: ER 16:18 → OVERFLOW 22:32 → EAST 22:34
PROVIDERS: ATTEND Emergency Medicine
DX: N20.0 Calculus of kidney (principal); N17.0 Acute kidney failure with tubular necrosis; E87.20 Acidosis, unspecified; N10 Acute pyelonephritis; E11.65 Type 2 diabetes mellitus with hyperglycemia; E86.0 Dehydration; K29.70 Gastritis, unspecified, without bleeding; E87.6 Hypokalemia; F10.129 Alcohol abuse with intoxication, unspecified; F15.10 Other stimulant abuse, uncomplicated; N28.1 Cyst of kidney, acquired; F17.210 Nicotine dependence, cigarettes, uncomplicated; K59.01 Slow transit constipation; Z79.899 Other long term (current) drug therapy; Y90.6 Blood alcohol level of 120-199 mg/100 ml
CPT/HCPCS: 36415; 71045; 74018; 74176; 80048; 80307; 80320; 81001; 82010; 82248; 82962; 83036; 83605; 83690; 83735; 83880; 84100; 84443; 84450; 84460; 85025; 86803; 87040; 87086; 87340; 93005; 93306; 96365; 96375; 99291; 99292; G0378; J1815; J2405; J2470; J2543; J3490